=== PATIENT | female | born 1935 | race Caucasian/White ===

== ENCOUNTER 2018-02-17 18:10 | Emergency (ER) | payer BC, MEDICARE, OTHER ==
--- NOTE | 2018-02-17 18:19 | PDOC ---
Rapid Medical Evaluation Medical Evaluation: Allergies Allergy/AdvReac Type Severity Reaction Status Date / Time No Known Allergies Allergy Verified 10/10/12 13:53 I have performed a brief in-person evaluation of this patient. The patient presents with a chief complaint of: Had recent cold around 1 month ago; c/o generalized weakness x 2 weeks, worse past week. Cold symptoms are resolving now. Denies sob, cp, abd pain, n/v/d, urinary complaints. Pertinent physical exam findings: In NAD, lungs clear, abdomen soft, ND, NT I have ordered the following: Labs, EKG, CXR The patient will proceed to the ED for further evaluation. 02/17/18 18:14
[2018-02-17 18:21] VITALS: BMI 21.2
[2018-02-17 20:03] LABS: BASO % 0.4 % (0-2.0); EOS % 1.2 % (0-4.5); HEMATOCRIT 35.4 % (32.4-45.2); HEMOGLOBIN 12.5 GM/dL (10.7-15.3); LYMPH % 35.3 % (8-40); MCH 33.6 pg (25.7-33.7); MCHC 35.3 g/dl (32.0-36.0); MEAN CELL VOLUME 95.2 fl (80-96); MEAN PLT VOLUME 9.4 fl (7.5-11.1); MONO % 9.7 % (3.8-10.2); NEUT % 53.4 % (42.8-82.8); PLATELET COUNT 277 K/MM3 (134-434); RBC 3.72 M/mm3 (3.60-5.2); RDW 13.4 % (11.6-15.6); WHITE BLOOD COUNT 4.2 K/mm3 (4.0-10.0)
[2018-02-17 20:37] LABS: ANION GAP 7 MMOL/L (8-16); BLOOD UREA NITROGEN 11 mg/dL (7-18); CALCIUM 9.1 mg/dL (8.5-10.1); CHLORIDE 104 mmol/L (98-107); CO2 24 mmol/L (21-32); CREATININE 1.3 mg/dL (0.55-1.3); GLUCOSE,RANDOM 100 mg/dL (74-106); SODIUM 135 mmol/L (136-145)
[2018-02-17 21:05] LABS: URINE APPEARANCE CLEAR; URINE BILIRUBIN NEGATIVE (<2.0 mg/dL); URINE COLOR LTYELLOW; URINE GLUCOSE (UA) NEGATIVE (NEGATIVE); URINE KETONE NEGATIVE (NEGATIVE); URINE LEUK ESTERASE NEGATIVE (NEGATIVE); URINE NITRITE NEGATIVE (NEGATIVE); URINE PROTEIN NEGATIVE (NEGATIVE); URINE UROBILINOGEN NEGATIVE mg/dL (0.2-1.0)
--- NOTE | 2018-02-17 21:38 | PDOC ---
History of Present Illness - General Chief Complaint: Weakness Stated Complaint: WEAKNESS Time Seen by Provider: 02/17/18 21:09 History Source: Patient Exam Limitations: No Limitations - History of Present Illness Initial Comments: 02/17/18 21:26 82 yo female pmh of HTN and kidney stones presents to the ED for 2 weeks of generalized weakness after getting over a cold 1 month ago. Pt states she saw her PCP 4 days ago for a re-eval of symptoms and no further treatment was given at that time. There has been no change of symptoms for the last 2 weeks. Pt had a cough that was related to antonio inhibtors and was recently switched BP meds with resolution. Denies all other ROS F/C/N/V Past History - Past Medical History Allergies/Adverse Reactions: Allergies Allergy/AdvReac Type Severity Reaction Status Date / Time No Known Allergies Allergy Verified 02/17/18 18:15 Home Medications: Ambulatory Orders Amlodipine Bes/Olmesartan Med [Reji 5-40 mg Tablet] 1 each PO 10/10/12 Cholecalciferol (Vitamin D3) [Vitamin D] 1,000 unit PO DAILY 10/10/12 Cyanocobalamin (Vitamin B-12) [Vitamin B-12] 250 mcg PO DAILY 10/10/12 Levothyroxine [Synthroid] 50 mcg PO DAILY 10/10/12 Zolpidem Tartrate [Ambien] 5 mg PO DAILY 10/10/12 COPD: No HTN: Yes Thyroid Disease: Yes - Surgical History Cholecystectomy: Yes - Immunization History Immunization Up to Date: Yes - Suicide/Smoking/Psychosocial Hx Smoking Status: No Smoking History: Never smoked Number of Cigarettes Smoked Daily: 0 Information on smoking cessation initiated: No Hx Alcohol Use: No Drug/Substance Use Hx: No *Physical Exam - Vital Signs Last Vital Signs Temp Pulse Resp BP Pulse Ox 97.7 F 113 H 16 155/83 99 02/17/18 18:16 02/17/18 18:16 02/17/18 18:16 02/17/18 18:16 02/17/18 18:16 Moderate Sedation - Procedure Monitoring Vital Signs: Procedure Monitoring Vital Signs Temperature 97.7 F 02/17/18 18:16 Pulse Rate 113 H 02/17/18 18:16 Respiratory Rate 16 02/17/18 18:16 Blood Pressure 155/83 02/17/18 18:16 O2 Sat by Pulse Oximetry (%) 99 02/17/18 18:16 ED Treatment Course - LABORATORY CBC & Chemistry Diagram: 02/17/18 19:46 02/17/18 19:46 - ADDITIONAL ORDERS Additional order review: Laboratory Results 02/17/18 02/17/18 19:46 19:46 Sodium 135 L Potassium 4.0 Chloride 104 Carbon Dioxide 24 Anion Gap 7 L BUN 11 Creatinine 1.3 Creat Clearance w eGFR 39.12 Random Glucose 100 Calcium 9.1 Creatine Kinase 39 Troponin I < 0.02 Urine Color Ltyellow Urine Appearance Clear Urine pH 6.0 Ur Specific [place] 1.009 L Urine Protein Negative Urine Glucose (UA) Negative Urine Ketones Negative Urine Blood Negative Urine Nitrite Negative Urine Bilirubin Negative Urine Urobilinogen Negative Ur Leukocyte Esterase Negative 02/17/18 19:46 RBC 3.72 MCV 95.2 MCHC 35.3 RDW 13.4 MPV 9.4 Neutrophils % 53.4 D Lymphocytes % 35.3 D Monocytes % 9.7 Eosinophils % 1.2 Basophils % 0.4 Medical Decision Making - Medical Decision Making 02/17/18 22:47 a/p: 82yo female with recent cold feels weak for the past 2 weaks without any associated symptoms Tachy at 113 but when reassessed come down into the 90s without treatment. No Fever AOX3 NAD HEENT exam normal Lungs clear Labs WNL, no WBC count EKG normal sinus rhythm Possible pulmonary nodule seen on CXR Pt feels better and is able to ambulate without difficulty. Advised pt to follow up with PCP for a possible CT scan for the nodule visualized. Strict return precautions given. Pt agrees and understands plan *DC/Admit/Observation/Transfer Diagnosis at time of Disposition: Weakness - Discharge Dispostion Disposition: HOME Condition at time of disposition: Stable Decision to Admit order: No - Referrals Referrals: Jarrett Johnson MD [Primary Care Provider] - - Patient Instructions Printed Discharge Instructions: DI for Common Cold Additional Instructions: Please make appointment with your Primary Care Doctor within the next 24-48 hours. Discuss having a possible CAT scan of the chest with your Doctor as well. Do your best to increased food and water intake. Continue taking your home dosed medications as prescribed by your PCP. Return to the Emergency Room for new or concerning symptoms including but not limited to: progressive weakness, fatigue, inability to ambulate, productive cough, blood in the sputum , high fevers. Thank you - Post Discharge Activity
--- NOTE | 2018-02-17 22:29 | PDOC ---
Attending Attestation - HPI HPI: 02/17/18 22:38 The patient is a 82 year old female with a significant past medical history of HTN and kidney stones who presents to the ED for 2 weeks of generalized weakness after getting over a cold 1 month ago. Patient states she saw her PCP 4 days ago for a re-eval of symptoms and no further treatment was given at that time. There has been no change of symptoms for the last 2 weeks. Patient also reports a decreased intake of food associated with present symptoms. Denies fever or chills. Denies abdominal pain, nausea, vomiting or diarrhea. Denies chest pain or shortness of breath. Denies headache or nasal congestion. Denies any other symptoms. - Physicial Exam PE: 02/17/18 22:38 Constitutional: Awake, alert, oriented. No acute distress. Head: Normocephalic. Atraumatic Eyes: PERRL. EOMI. Conjunctivae are not pale. ENT: Mucous membranes are moist and intact. Posterior pharynx without exudates or erythema. Uvula midline. Neck: Supple. Full ROM. No lymphadenopathy. Cardiovascular: Regular rate. Regular rhythm. S1, S2 regular. Distal pulses are 2+ and symmetric. Pulmonary/Chest: No evidence of respiratory distress. Clear to auscultation bilaterally No wheezing, rales or rhonchi. Abdominal: Soft and non-distended. There is no tenderness. No rebound, guarding or rigidity. No organomegaly. No palpable masses. Good bowel sounds. Back: No CVA tenderness. Musculoskeletal: No edema. No cyanosis. No clubbing. Full range of motion in all extremities. Nocalf tenderness. Radial/pedal pulses are intact and 2+ bilaterally Skin: Skin is warm and dry. No petechiae. No purpura. Neurological: Alert and oriented to person, place, and time. Cranial nerves II -XII are grossly intact. Normal speech. Strength is grossly symmetric. No sensory deficits. Psychiatric: Good eye contact. Normal interaction, affect and behavior. <Olga Paz - Last Filed: 02/17/18 22:38> - Resident Resident Name: Paco Wang - ED Attending Attestation I have performed the following: I have examined & evaluated the patient, The case was reviewed & discussed with the resident, I agree w/resident's findings & plan, Exceptions are as noted - Medical Decision Making 02/17/18 22:29 I, Dr. Ann-Marie Boo, DO, attest that this document has been prepared under my direction and personally reviewed by me in its entirety. I further attest, that it accurately reflects all work, treatment, procedures and medical decision -making performed by me. 02/17/18 22:41 a/p: 82yo female with recent uri - still feeling weak -no cp/sob -no cough -no uti -no n/v/d -nontoxic in appearance -labs, ekg, cxr - discussed possible pulmonary nodule. discussed follow up ct as outpt -answered all quesitons -pt feels better and requesting to go home and follow up with PMD. <Ann-Marie Boo - Last Filed: 02/17/18 22:43> Heart Score/ECG Review - ECG Intrepretation Comment:: 02/17/18 22:29 sinus at 88, nl axis, nl interval, no acute st/t wave findings <Ann-Marie Boo - Last Filed: 02/17/18 22:43> Attestations - Attestations 02/17/18 22:38 Documentation prepared by Olga Paz, acting as medical care evaluation specialist for Ann-Marie Boo DO <Olga Paz - Last Filed: 02/17/18 22:38>
[2018-02-17 22:54] VITALS: BP 128/77; PULSE 88; TEMP 98.7
--- NOTE | 2018-02-18 11:29 | EKG ---
Test Reason : Blood Pressure : / mmHG Vent. Rate : 088 BPM Atrial Rate : 088 BPM P-R Int : 124 ms QRS Dur : 082 ms QT Int : 382 ms P-R-T Axes : 055 041 045 degrees QTc Int : 462 ms POOR DATA QUALITY, INTERPRETATION MAY BE ADVERSELY AFFECTED NORMAL SINUS RHYTHM NORMAL ECG WHEN COMPARED WITH ECG OF 10-OCT-2012 14:41, NO SIGNIFICANT CHANGE WAS FOUND Confirmed by MEGHAN TEMPLE, JOSEPH ([id number]) on 02/18/2018 11:28:44 AM Referred By: Confirmed By:JOSEPH CHRISTIANSON MD
== END 2018-02-17 22:50 | disposition home or self-care (01) ==
LOC: JER 18:10
DX: R53.1 Weakness (principal); I10 Essential (primary) hypertension; E07.89 Other specified disorders of thyroid
CPT/HCPCS: 36415; 71046-TC-FY; 80048; 81003; 82550; 84484; 85025; 93005; 93010; 99282-25

== ENCOUNTER 2018-07-15 14:30 | Inpatient (IN) | payer BC | END 2018-07-17 16:34 | disposition home or self-care (01) | LOC: JER 14:30 → JERBED 15:50 → J4S 21:40 ==

== ENCOUNTER 2018-08-24 11:48 | Emergency (ER) | payer BC, OTHER ==
[2018-08-24 11:52] VITALS: BMI 22.0
--- NOTE | 2018-08-24 12:04 | PDOC ---
History of Present Illness - General Chief Complaint: Pain, Acute Stated Complaint: LBP Time Seen by Provider: 08/24/18 12:04 - History of Present Illness Initial Comments: 08/24/18 16:26 chief complaint: Low back pain History of present illness: Pain and stiffness in the sacral and coccygeal areas of the low back for approximately one after undergoing a medical procedure which required lying on a hard table for prolonged period of time. Pain was worse this morning. aggravated by weightbearing.no radiation to the legs. No distal numbness or tingling. No oumar weakness. No bowel or bladder incontinence or retention. Review of systems as above otherwise negative Past medical, social, and family history noncontributory. to this illness physical exam: Alert and oriented, moderate distress from low back pain afebrile, vital signs normal LS spine with normal curvature, no deformities, no inflammation, no point tenderness. Indicated pain is over the lower sacrum and coccyx. Straight leg raising negative. Strength full and symmetrc. No focal sensory or motor deficits. No posterior calf swelling or tenderness. Impression: Low back strain, no radiculopathy. Plan: Analgesics and orthopedic referral. Somewhat improved with Percocet. Taking Eliquis limiting the use of anti-inflammatories. Begun on Medrol Dosepak yesterday . Dr. Gonzales was contacted and will see patient today in his office. Past History - Past Medical History Allergies/Adverse Reactions: Allergies Allergy/AdvReac Type Severity Reaction Status Date / Time No Known Allergies Allergy Verified 08/24/18 11:49 Home Medications: Ambulatory Orders Levothyroxine [Synthroid -] 50 mcg PO DAILY 10/10/12 Apixaban [Eliquis -] 5 mg PO BID #60 tablet 07/17/18 Diltiazem Cd [Cardizem Cd -] 240 mg PO DAILY #30 cap.cd.24h 07/17/18 Anemia: No Asthma: No Cancer: No Cardiac Disorders: Yes (Chest pain, SOB, AFIB) CVA: No COPD: No CHF: No Dementia: No Diabetes: No GI Disorders: No HTN: Yes Liver Disease: No Seizures: No Thyroid Disease: Yes (hypothyriod) - Surgical History Cholecystectomy: Yes - Immunization History Immunization Up to Date: Yes - Suicide/Smoking/Psychosocial Hx Smoking Status: No Smoking History: Never smoked Have you smoked in the past 12 months: No Number of Cigarettes Smoked Daily: 0 Hx Alcohol Use: No Drug/Substance Use Hx: No Substance Use Type: None Hx Substance Use Treatment: No *Physical Exam - Vital Signs Last Vital Signs Temp Pulse Resp BP Pulse Ox 98.7 F 83 18 154/73 98 08/24/18 11:49 08/24/18 11:49 08/24/18 11:49 08/24/18 11:49 08/24/18 11:49 *DC/Admit/Observation/Transfer Diagnosis at time of Disposition: Low back strain Qualifiers: Encounter type: initial encounter Qualified Code(s): S39.012A - Strain of muscle, fascia and tendon of lower back, initial encounter - Discharge Dispostion Disposition: HOME Condition at time of disposition: Stable Decision to Admit order: No - Referrals Referrals: Jarrett Johnson MD [Primary Care Provider] - 24 hours Grady Gonzales MD [Staff Physician] - 24 hours - Patient Instructions Printed Discharge Instructions: DI for Low Back Pain Additional Instructions: avoid sitting in a chair or a car. Lie on a firm flat surface or do some limited walking around the house and gentle stretching. - Post Discharge Activity
[2018-08-24 12:26] VITALS: BP 154/73; PULSE 83; TEMP 98.7
== END 2018-08-24 14:40 | disposition home or self-care (01) ==
LOC: FER 11:48
DX: S39.012A Strain of muscle, fascia and tendon of lower back, initial encounter (principal); X58.XXXA Exposure to other specified factors, initial encounter; Y93.89 Activity, other specified; Y92.89 Other specified places as the place of occurrence of the external cause; E03.9 Hypothyroidism, unspecified; I10 Essential (primary) hypertension; R07.9 Chest pain, unspecified; R06.02 Shortness of breath; I48.91 Unspecified atrial fibrillation
CPT/HCPCS: 99281-25

== ENCOUNTER 2018-08-30 12:43 | Inpatient (IN) | payer BC ==
--- NOTE | 2018-08-30 13:34 | PDOC ---
History of Present Illness - History of Present Illness Initial Comments: 08/30/18 13:50 Shantel Ramires is a 83yF with a PMHx of a fib on eliquis, hypothyroidism, HTN presenting with lower back pain. Pain started 3 wks ago after an EKG and twisted her back while on a hard bed. Since then, pain progressively worsening in R lower back over sacral and coccyx region. Focal pain, no radiation to back or legs. No fevers/chills, bowel/bladder incontinence. Percocet and advil offered little relief. Presented to [facility] ED last week, d/c home with analgesics and medrol dose haley. Saw Dr. Grady Gonzales orthopedic surgeon, back XR negative for fracture. Had shingles vaccine. <Jose Morgan - Last Filed: 08/30/18 15:18> <Bettye Woodward - Last Filed: 08/30/18 23:02> - General Chief Complaint: Back Pain Stated Complaint: BACK PAIN Time Seen by Provider: 08/30/18 13:14 Past History - Past Medical History Anemia: No Asthma: No Cancer: No Cardiac Disorders: Yes (Chest pain, SOB, AFIB) CVA: No COPD: No CHF: No Dementia: No Diabetes: No GI Disorders: No HTN: Yes Liver Disease: No Seizures: No Thyroid Disease: Yes (hypothyriod) - Surgical History Cholecystectomy: Yes - Immunization History Immunization Up to Date: Yes - Suicide/Smoking/Psychosocial Hx Smoking Status: No Smoking History: Never smoked Have you smoked in the past 12 months: No Number of Cigarettes Smoked Daily: 0 Information on smoking cessation initiated: No Hx Alcohol Use: No Drug/Substance Use Hx: No Substance Use Type: None Hx Substance Use Treatment: No <Jose Morgan - Last Filed: 08/30/18 15:18> <Bettye Woodward - Last Filed: 08/30/18 23:02> - Past Medical History Allergies/Adverse Reactions: Allergies Allergy/AdvReac Type Severity Reaction Status Date / Time No Known Allergies Allergy Verified 08/30/18 14:51 Home Medications: Ambulatory Orders Levothyroxine [Synthroid -] 50 mcg PO DAILY 10/10/12 Apixaban [Eliquis -] 5 mg PO BID #60 tablet 07/17/18 Diltiazem Cd [Cardizem Cd -] 240 mg PO DAILY #30 cap.cd.24h 07/17/18 Oxycodone HCl/Acetaminophen [Percocet 5-325 mg Tablet] 1 tablet PO PRN PRN 08/30 Zolpidem Tartrate 10 mg PO DAILY 08/30/18 Review of Systems - Review of Systems Constitutional: No: Chills, Fever, Night Sweats, Weakness HEENTM: No: Eye Pain, Ear Pain, Nose Pain Respiratory: No: Cough, Shortness of Breath Cardiac (ROS): No: Chest Pain, Edema, Syncope ABD/GI: No: Constipated, Diarrhea, Nausea, Vomiting : No: Burning, Dysuria, Discharge, Pain Musculoskeletal: Yes: Back Pain (R lower back). No: Muscle Weakness Integumentary: No: Bruising, Change in Color, Erythema, Lesions, Pruritus, Rash Endocrine: No: Excessive Sweating, Flushing, Change in Weight Hematologic/Lymphatic: No: Easy Bleeding, Easy Bruising <Jose Morgan - Last Filed: 08/30/18 15:18> *Physical Exam - Vital Signs Last Vital Signs Temp Pulse Resp BP Pulse Ox 97 F L 84 18 148/89 99 08/30/18 12:58 08/30/18 12:58 08/30/18 12:58 08/30/18 12:58 08/30/18 12:58 - Physical Exam General Appearance: Yes: Moderate Distress (lying on R side), Thin HEENT: positive: JESIKA, Normal Voice Respiratory/Chest: positive: Lungs Clear, Normal Breath Sounds. negative: Respiratory Distress Cardiovascular: positive: Regular Rhythm, Regular Rate, S1, S2. negative: Murmur Musculoskeletal: positive: Other (R lower back: no skin breakage, rashes, or erythema. Extremely tender to palpation) <Jose Morgan - Last Filed: 08/30/18 15:18> - Vital Signs Last Vital Signs Temp Pulse Resp BP Pulse Ox 97.5 F L 75 20 133/72 98 08/30/18 20:16 08/30/18 20:16 08/30/18 20:16 08/30/18 20:16 08/30/18 16:55 <Bettye Woodward - Last Filed: 08/30/18 23:02> ED Treatment Course - Medications Given in the ED: ED Medications Discontinued Medications Generic Name Dose Route Start Last Admin Trade Name Ana PRN Reason Stop Dose Admin Acetaminophen 1,000 mg 08/30/18 13:58 08/30/18 14:30 Ofirmev Injection - IVPB 08/30/18 13:59 1,000 mg ONCE ONE Administration Acetaminophen 325 mg 08/30/18 15:30 08/30/18 16:46 Tylenol - PO 08/30/18 15:31 Not Given ONCE ONE Cyclobenzaprine HCl 5 mg 08/30/18 13:58 08/30/18 14:30 Flexeril - PO 08/30/18 13:59 5 mg ONCE ONE Administration Lidocaine 1 patch 08/30/18 13:54 08/30/18 14:30 Lidoderm Patch - TP 08/30/18 13:55 1 patch ONCE ONE Administration Oxycodone HCl 5 mg 08/30/18 15:30 08/30/18 16:45 Roxicodone - PO 08/30/18 15:31 Not Given ONCE ONE Oxycodone HCl 5 mg 08/30/18 16:07 08/30/18 17:56 Roxicodone - PO 5 mg Q6H PRN Administration PAIN SCALE 6-10 Oxycodone/Acetaminophen 1 combo 08/30/18 14:58 08/30/18 16:44 Percocet 5/325 - PO 08/30/18 14:59 Not Given ONCE ONE Oxycodone/Acetaminophen 1 combo 08/30/18 15:30 08/30/18 15:00 Percocet 5/325 - PO 08/30/18 15:31 1 combo ONCE ONE Administration <Bettye Woodward - Last Filed: 08/30/18 23:02> Medical Decision Making - Critical Care Time Total Critical Care Time (minutes): 30 Critical Care Statement: The care of this patient involved high complexity decision making to prevent further life threatening deterioration of the patient 's condition and/or to evaluate & treat vital organ system(s) failure or risk of failure. - Medical Decision Making 08/30/18 15:12 Talked to PCP, advised to get CT back, admit for further workup and pain control Given lidoderm patch, tylenol, flexeril without any pain relief Given 5mg percocet Shantel Ramires is a 83yF with a PMHx of a fib on eliquis, hypothyroidism, HTN presenting with right lower back pain. Likely MSK due to negative imaging. Unlikely spinal stenosis d/t lack of bowel or urinary changes. Unlikely fracture /herniation d/t negative ortho imaging 1 week ago. Given meds for pain control, ordered CT L-spine. Plan per PCP to admit to floor for further workup and pain control. 08/30/18 15:18 <Jose Morgan - Last Filed: 08/30/18 15:18> *DC/Admit/Observation/Transfer <Jose Morgan - Last Filed: 08/30/18 15:18> - Discharge Dispostion Decision to Admit order: Yes <Bettye Woodward - Last Filed: 08/30/18 23:02> Diagnosis at time of Disposition: Right low back pain, Sacral fracture - Discharge Dispostion Condition at time of disposition: Stable
[2018-08-30] MEDS ORDERED: LIDOCAINE 5% TOPICAL PATCH TP ONE (13:54)
[2018-08-30] MEDS ORDERED: ACETAMINOPHEN 1000 MG/100 ML VIAL (NON FORMULARY) IVPB ONE (13:58)
[2018-08-30] MEDS ORDERED: CYCLOBENZAPRINE HCL 10 MG TABLET (FP) PO ONE (13:58)
[2018-08-30] MEDS ORDERED: CYCLOBENZAPRINE HCL 10 MG TABLET (FP) ONE (14:20)
[2018-08-30] MEDS ORDERED: ACETAMINOPHEN INJECTION 100 ML IVPB ONE (14:20)
[2018-08-30] MEDS ORDERED: LIDOCAINE 5% TOPICAL PATCH ONE (14:21)
--- NOTE | 2018-08-30 14:47 | PDOC ---
Documentation entered by Deana Modi SCRIBE, acting as scribe for Bettye Woodward MD. Bettye Woodward MD: This documentation has been prepared by the Rian coulter Adrianna, SCRIBE, under my direction and personally reviewed by me in its entirety. I confirm that the documentation accurately reflects all work, treatment, procedures, and medical decision making performed by me. Attending Attestation - Resident Resident Name: CathyJose - ED Attending Attestation I have performed the following: I have examined & evaluated the patient, The case was reviewed & discussed with the resident, I agree w/resident's findings & plan - HPI HPI: 83 y/o female with past medical history of Afib (on Eliquis), HTN, hypothyroidism, and kidney stones, who presents for sacral/lumbar back pain. Patient was seen in the ED 6 days ago for the same complaint on 08/24/18, and was discharged after relief with Percocet and given Ortho referral Dr Gonzales and Medrol pack. She notes no change in symptoms since her visit. Patients PMD advised her to come to the ED for admission and CT L-spine secondary to failure with outpatient treatment modalities. Allergies: NKA Past Medical History: Afib (on Eliquis), HTN, hypothyroidism, and kidney stones Social history: Lives with family. No tobacco, ETOH or drug use. Surgical history: Cholecystectomy Meds: as documented in EMR PMD: Dr. Johnson 08/30/18 14:33 08/30/18 14:42 - Physicial Exam PE: Agree with the resident's HPI and PE as documented in the electronic medical record. NAD, well appearing, lying on side, no respiratory distress, abdomen soft nontender. PULIDO x4, no focal neuro deficits. No peripheral edema. normal color for ethnicity, WWP. 5/5 plantar and dorsiflexion, bilateral lower extremities; SILT +sacral tenderness, mild right paravertebral/buttock TTP. 08/30/18 14:25 08/30/18 14:39 - Medical Decision Making 08/30/18 14:41 VS reviewed, wnl DDx back pain: back strain, lumbago, sciatica, radiculopathy, spinal stenosis. Muscle spasm. Lumbar radiculopathy. Clinically doubt based on exam and clinical history: cord compression or cauda equina, with low suspicion and NO red flag sx such as weight loss, trauma, fevers, IVDU, lumbar/spinal procedures, bowel and bladder incontinence/retention , urinary sx, neurologic deficits or changes. admit for back pain, imaging and Dr Johnson service, discussed care. inpatient ortho cs, continued analgesia. Lumbar CT scan shows acute/subacute sacral fractures, small left paramedian T11- [id number] herniation - PT/ortho/ consult, pain control, medical management. 08/30/18 14:46 08/30/18 23:02
[2018-08-30] MEDS ORDERED: oxyCODONE HCL 5 MG TABLET PO ONE (15:30)
[2018-08-30] MEDS ORDERED: ACETAMINOPHEN 325 MG TABLET (FP) PO ONE (15:30)
[2018-08-30] MEDS ORDERED: oxyCODONE HCL 5 MG TABLET PO PRN (16:07)
--- NOTE | 2018-08-30 16:52 | HP ---
Admitting History and Physical - Primary Care Physician PCP: Jarrett Johnson - Admission Chief Complaint: worsening lower back pain History of Present Illness: Patient is an 83 y/o female with past medical history of Afib on Eliquis, HTN, hypothyroidism, and Kidney Stones. Patient was sent to ER by PCP for worsening lower back pain. She states that she has a heavy/aching pain to lower back x 1 month. Denies trauma or injury. She was seen at [place] last Wednesday for same chief complaint and received Medrol Dose pack and followed up with Orthopedist Dr. Gonzales. Patient states that pain has gotten increasingly worse and is now experiencing difficulty walking. History Source: Patient Limitations to Obtaining History: No Limitations - Past Medical History Cardiovascular: Yes: HTN Endocrine: Yes: Hypothyroidism - Past Surgical History Past Surgical History: Yes: Cholecystectomy - Smoking History Smoking history: Never smoked Have you smoked in the past 12 months: No Aproximately how many cigarettes per day: 0 - Alcohol/Substance Use Hx Alcohol Use: No - Social History ADL: Independent History of Recent Travel: No Home Medications - Allergies Allergies/Adverse Reactions: Allergies Allergy/AdvReac Type Severity Reaction Status Date / Time No Known Allergies Allergy Verified 08/30/18 14:51 - Home Medications Home Medications: Ambulatory Orders Levothyroxine [Synthroid -] 50 mcg PO DAILY 10/10/12 Apixaban [Eliquis -] 5 mg PO BID #60 tablet 07/17/18 Diltiazem Cd [Cardizem Cd -] 240 mg PO DAILY #30 cap.cd.24h 07/17/18 Oxycodone HCl/Acetaminophen [Percocet 5-325 mg Tablet] 1 tablet PO PRN PRN 08/30 Zolpidem Tartrate 10 mg PO DAILY 08/30/18 Review of Systems - Review of Systems Constitutional: reports: Loss of Appetite Eyes: reports: No Symptoms HENT: reports: No Symptoms Neck: reports: No Symptoms Cardiovascular: reports: No Symptoms Respiratory: reports: No Symptoms Gastrointestinal: reports: No Symptoms Genitourinary: reports: No Symptoms Breasts: reports: No Symptoms Reported Musculoskeletal: reports: Back Pain, Muscle Weakness Integumentary: reports: No Symptoms Neurological: reports: No Symptoms Endocrine: reports: No Symptoms Hematology/Lymphatic: reports: No Symptoms Psychiatric: reports: No Symptoms Physical Examination Vital Signs: Vital Signs Temperature 97.7 F 08/30/18 14:50 Pulse Rate 79 08/30/18 14:50 Respiratory Rate 17 08/30/18 14:50 Blood Pressure 143/68 08/30/18 14:50 O2 Sat by Pulse Oximetry (%) 98 08/30/18 14:50 Constitutional: Yes: No Distress, Calm Eyes: Yes: Conjunctiva Clear HENT: Yes: Atraumatic Neck: Yes: Supple Cardiovascular: Yes: Regular Rate and Rhythm Respiratory: Yes: Regular, CTA Bilaterally Gastrointestinal: Yes: Normal Bowel Sounds, Soft Musculoskeletal: Yes: Muscle Weakness Extremities: Yes: WNL Edema: No Neurological: Yes: Alert, Oriented Psychiatric: Yes: Alert, Oriented Imaging - Results Cat Scan: Report Reviewed Problem List - Problems (1) Right low back pain Assessment/Plan: -Orthopedic and Neurosurgery consult -Lumbar CT scan shows acute/subacute sacral fractures, small left paramedian T11 -[id number] herniation -pain control Code(s): M54.5 - LOW BACK PAIN (2) HTN (hypertension) Assessment/Plan: -Diltiazem -low Na diet Code(s): I10 - ESSENTIAL (PRIMARY) HYPERTENSION (3) Hypothyroid Assessment/Plan: -Levothyroxine Code(s): E03.9 - HYPOTHYROIDISM, UNSPECIFIED (4) New onset atrial fibrillation Assessment/Plan: -Eliquis Code(s): I48.91 - UNSPECIFIED ATRIAL FIBRILLATION Assessment/Plan see problem list dvt ppx
[2018-08-30] MEDS: APIXABAN 5 MG TABLET PO SCH (22:04)
[2018-08-30] MEDS: LIDOCAINE PATCH REMOVAL MC SCH (22:04)
[2018-08-30] MEDS: ZOLPIDEM TARTRATE 5 MG TABLET PO PRN (22:13)
[2018-08-31] MEDS: LEVOTHYROXINE NA 50 MCG TABLET (FP) PO SCH (06:37)
[2018-08-31] MEDS: oxyCODONE HCL 5 MG TABLET PO PRN ×3 (06:39→18:20)
[2018-08-31 07:46] LABS: BASO % 0.1 % (0-2.0); EOS % 2.1 % (0-4.5); HEMATOCRIT 38.9 % (32.4-45.2); HEMOGLOBIN 13.4 GM/dL (10.7-15.3); LYMPH % 20.4 % (8-40); MCH 32.4 pg (25.7-33.7); MCHC 34.4 g/dl (32.0-36.0); MEAN CELL VOLUME 94.3 fl (80-96); MEAN PLT VOLUME 9.1 fl (7.5-11.1); MONO % 9.8 % (3.8-10.2); NEUT % 67.6 % (42.8-82.8); PLATELET COUNT 186 K/MM3 (134-434); RBC 4.12 M/mm3 (3.60-5.2); RDW 13.1 % (11.6-15.6); WHITE BLOOD COUNT 4.6 K/mm3 (4.0-10.0)
[2018-08-31 08:07] LABS: BILIRUBIN,TOTAL 0.8 mg/dL (0.2-1); BLOOD UREA NITROGEN 29.5 mg/dL (7-18); CALCIUM 8.8 mg/dL (8.5-10.1); CREATININE 1.2 mg/dL (0.55-1.3); MAGNESIUM 2.1 mg/dL (1.8-2.4); PHOSPHOROUS 3.2 mg/dL (2.5-4.9); POTASSIUM 3.7 mmol/L (3.5-5.1); TOT PROT 6.6 g/dl (6.4-8.2)
[2018-08-31] MEDS ORDERED: DOCUSATE SODIUM 100 MG CAPSULE (FP) PO PRN (09:03)
[2018-08-31] MEDS ORDERED: FENTANYL PATCH WASTE MC PRN (09:03)
--- NOTE | 2018-08-31 09:05 | PN ---
Progress Note, Physician - Current Medication List Current Medications: Active Medications Acetaminophen (Tylenol -) 325 mg PO Q6H PRN PRN Reason: PAIN SCALE 6-10 Apixaban (Eliquis -) 5 mg PO BID [facility] Last Admin: 08/30/18 22:04 Dose: 5 mg Diltiazem HCl (Cardizem Cd -) 240 mg PO DAILY [facility] Levothyroxine Sodium (Synthroid -) 50 mcg PO AM [facility] Last Admin: 08/31/18 06:37 Dose: 50 mcg Miscellaneous (Lidoderm Patch Removal) 1 each MC DAILY@2200 [facility] Last Admin: 08/30/18 22:04 Dose: 1 each Oxycodone HCl (Roxicodone -) 10 mg PO Q6H PRN PRN Reason: PAIN SCALE 6-10 Last Admin: 08/31/18 06:39 Dose: 10 mg Zolpidem Tartrate (Ambien -) 5 mg PO HS PRN PRN Reason: INSOMNIA Last Admin: 08/30/18 22:13 Dose: 5 mg - Objective Vital Signs: Vital Signs Temperature 98.5 F 08/31/18 06:00 Pulse Rate 83 08/31/18 06:00 Respiratory Rate 20 08/31/18 06:00 Blood Pressure 123/70 08/31/18 06:00 O2 Sat by Pulse Oximetry (%) 98 08/30/18 16:55 Cardiovascular: Yes: S1, S2 Respiratory: Yes: Regular, CTA Bilaterally Gastrointestinal: Yes: Normal Bowel Sounds, Soft Musculoskeletal: Yes: Back Pain Edema: No Neurological: Yes: Alert, Oriented, Unsteady Gait, Weakness Labs: CBC, BMP 08/31/18 07:14 08/31/18 07:14 Problem List - Problems (1) Sacral fracture Assessment/Plan: ADD DURAGESIC PATCH OXY PRN PT ORTHO Code(s): S32.10XA - UNSP FRACTURE OF SACRUM, INIT ENCNTR FOR CLOSED FRACTURE (2) Afib Assessment/Plan: CONTINUE WITH ELIQUIS Code(s): I48.91 - UNSPECIFIED ATRIAL FIBRILLATION (3) HTN (hypertension) Assessment/Plan: Vital Signs Period Temp Pulse Resp BP Sys/Lr Pulse Ox Last 24 Hr 97.5 F-98.5 F 75-87 17-20 123-146/54-78 98-98 Code(s): I10 - ESSENTIAL (PRIMARY) HYPERTENSION
[2018-08-31] MEDS ORDERED: PT OWN MED DRAWER 7, Y5N ONE ×3 (09:45→14:53)
[2018-08-31] MEDS: APIXABAN 5 MG TABLET PO SCH ×2 (09:53→21:33)
[2018-08-31] MEDS: fentaNYL 25mcg/hr PATCH.TD72 TD SCH (09:53)
--- NOTE | 2018-08-31 10:19 | PN ---
Progress Note (short form) - Note Progress Note: Pt seen and examined. She is an 83 year old female patient who denies any recent history of major trauma, but about 1 1/2 weeks ago she was on a cardiac testing table, and the legs were left dangling after the test. She felt a mild pain in the low back at that moment. Since then she has had pain in the low back , increasing with weight bearing to the point that she has great difficulty ambulating. She denies sciatica, but the legs feel weak, like they will give out. PE + tender over the low back, posterior pelvis, over the sacrum B/L LE are NVI, good ROM at the hips, knees, ankles, feet, toes Nl strength throughout, but hip flexion resistance is moderately painful at the low back No signs of sciatica CT scan of the lumbar spine and pelvis shows a small HNP at T11-T12, as well as acute/subacute bilateral sacral alae fractures. Imp T11-T12 HNP and bilateral sacral alae fractures, significant pain with walking Rec P.T., WBAT, ambulate with walker OOB to chair with assistance for atleast 3 hours/day SNF placement may be necessary Follow up in office as an out patient in 2 weeks for repeat xrays
[2018-08-31] MEDS: CALCITONIN - SALMON SYNTHETIC 200 UNITS/SPRAY NS SCH (11:30)
[2018-08-31] MEDS: ACETAMINOPHEN 325 MG TABLET (FP) PO PRN ×2 (12:31→18:21)
--- NOTE | 2018-08-31 13:31 | CONSULT ---
Consult Consult Specialty:: PM&R Dr An for Dr Chisholm - History of Present Illness Chief Complaint: low back pain History of Present Illness: This is an 83 year old woman with a medical history of A fib on Eliquis, HTN, s/ p cholecystectomy, renal stones, hypothyroidism, who presented to the ED with worsening LBP x1 month. 08/30/18 CT lumbar spine showed acute to subacute B sacral fractures with small L paramedian T11-T12 HNP. She was admitted for pain control and is pending Neurosurgical and Ortho consults. She was seen by PT, and on 08/31/18 she was Minimum Assist in Transfers, and ambulated 20 feet Contact Guard x2 people with Rolling Walker. Physiatry is being consulted for further recommendations. - Past Medical History Cardio/Vascular: Yes: AFIB, HTN Renal/: Yes: Renal Calculi ...: No Endocrine: Yes: Hypothyroidism - Past Surgical History Past Surgical History: Yes: Cholecystectomy - Alcohol/Substance Use Hx Alcohol Use: No - Smoking History Smoking history: Never smoked Have you smoked in the past 12 months: No Aproximately how many cigarettes per day: 0 - Social History Usual Living Arrangement: Alone (lives alone in house with 13 steps to enter from garage and 13 more to bedroom) ADL: Independent (without assistive device) History of Recent Travel: No Home Medications - Allergies Allergies/Adverse Reactions: Allergies Allergy/AdvReac Type Severity Reaction Status Date / Time No Known Allergies Allergy Verified 08/30/18 14:51 - Home Medications Home Medications: Ambulatory Orders Levothyroxine [Synthroid -] 50 mcg PO DAILY 10/10/12 Apixaban [Eliquis -] 5 mg PO BID #60 tablet 07/17/18 Diltiazem Cd [Cardizem Cd -] 240 mg PO DAILY #30 cap.cd.24h 07/17/18 Oxycodone HCl/Acetaminophen [Percocet 5-325 mg Tablet] 1 tablet PO PRN PRN 08/30 Zolpidem Tartrate 10 mg PO DAILY 08/30/18 Review of Systems Findings/Remarks: Denies fevers, chills, changes in vision/ hearing/ mood, CP, SOB, abdominal pain , nausea, vomiting, constipation, diarrhea, dysuria, numbness/ paresthesias. Notes LBP into R buttock but does not radiate below. Physical Exam Vital Signs: Vital Signs Temperature 97.8 F 08/31/18 10:00 Pulse Rate 87 08/31/18 10:00 Respiratory Rate 18 08/31/18 10:00 Blood Pressure 123/54 L 08/31/18 10:00 O2 Sat by Pulse Oximetry (%) 98 08/30/18 16:55 Musculoskeletal: Yes: Other (General: calm elderly F lying in bed NAD , AAO x3 N/M: B shoulder flexion to 150 degrees, 5/5 BUE/ BLE except for 4+/5 B HF; Pinprick Intact BUE/ BLE Extremities: no BLE pitting edema, no B calf tenderness, +tendernes to palpation sacrum without lumbar paraspinal/ gluteal/ GT tenderness) Labs: CBC, BMP 08/31/18 07:14 08/31/18 07:14 Imaging - Results Cat Scan: Report Reviewed (CT LS spine as per HPI) Assessment/Plan Impression: 1) Deficits mobility/ ADLs 2) Gait abnormality 3) B sacral fx 4) T11-T12 L paramedian HNP 5) hx A fib on Eliquis, HTN 6) s/p cholecystectomy 7) hx renal stones 8) hx hypothyroidism 9) BMI WNL 10) Up to date pneumovax, no documented flu shot Recommendations: 1) PT for functional mobility and endurance 2) Falls, safety precautions 3) Cardiac precautions 4) Ice sacrum prn 5) DVT ppx: on Eliquis 6) Denies constipation on current bowel regimen 7) Skin protection: float heels, frequent turning 8) Pending Ortho and Neurosurgical consults 9) Pain controlled on Fentanyl/ Lidoderm patches 10) Discharge planning: depending on pain level, she may be able to return home with services versus short- course inpatient rehabilitation Thank you for this referral.
[2018-08-31] MEDS: LIDOCAINE PATCH REMOVAL MC SCH (21:36)
[2018-08-31] MEDS ORDERED: ZOLPIDEM TARTRATE 5 MG TABLET PO PRN (22:00)
[2018-08-31] MEDS: ZOLPIDEM TARTRATE 5 MG TABLET PO PRN (23:01)
[2018-09-01] MEDS: LEVOTHYROXINE NA 50 MCG TABLET (FP) PO SCH (06:10)
[2018-09-01] MEDS: oxyCODONE HCL 5 MG TABLET PO PRN ×3 (08:04→21:33)
[2018-09-01] MEDS: ACETAMINOPHEN 325 MG TABLET (FP) PO PRN ×2 (08:05→15:19)
[2018-09-01] MEDS ORDERED: PT OWN MED DRAWER 7, Y5N ONE (09:06)
[2018-09-01] MEDS: APIXABAN 5 MG TABLET PO SCH ×2 (09:10→21:34)
[2018-09-01] MEDS: CALCITONIN - SALMON SYNTHETIC 200 UNITS/SPRAY NS SCH (09:11)
--- NOTE | 2018-09-01 18:17 | PN ---
Progress Note, Physician Chief Complaint: Low back pain History of Present Illness: NAD lying in bed comfortably daughter bedside walked with PT-25 ft NS consult-conservative measure - Current Medication List Current Medications: Active Medications Acetaminophen (Tylenol -) 325 mg PO Q6H PRN PRN Reason: PAIN SCALE 6-10 Last Admin: 09/01/18 15:19 Dose: 325 mg Apixaban (Eliquis -) 5 mg PO BID [facility] Last Admin: 09/01/18 09:10 Dose: 5 mg Calcitonin (Miacalcin [place] -) 200 units NS DAILY [facility] Last Admin: 09/01/18 09:11 Dose: 200 spray Diltiazem HCl (Cardizem Cd -) 240 mg PO DAILY [facility] Last Admin: 09/01/18 09:09 Dose: 240 mg Docusate Sodium (Colace -) 100 mg PO BID PRN PRN Reason: CONSTIPATION Fentanyl (Duragesic 25mcg Patch -) 1 patch TD Q72H [facility] Stop: 09/07/18 09:03 Last Admin: 08/31/18 09:53 Dose: 1 patch Levothyroxine Sodium (Synthroid -) 50 mcg PO AM [facility] Last Admin: 09/01/18 06:10 Dose: 50 mcg Miscellaneous (Lidoderm Patch Removal) 1 each MC DAILY@2200 [facility] Last Admin: 08/31/18 21:36 Dose: Not Given Miscellaneous (Duragesic Patch Waste) 1 each MC PRN PRN PRN Reason: PAIN Oxycodone HCl (Roxicodone -) 10 mg PO Q6H PRN PRN Reason: PAIN SCALE 6-10 Last Admin: 09/01/18 15:18 Dose: 10 mg Zolpidem Tartrate (Ambien -) 5 mg PO HS PRN PRN Reason: INSOMNIA Last Admin: 08/31/18 23:01 Dose: 5 mg - Objective Vital Signs: Vital Signs Temperature 97.6 F 09/01/18 13:48 Pulse Rate 86 09/01/18 13:48 Respiratory Rate 20 09/01/18 13:48 Blood Pressure 131/65 09/01/18 13:48 O2 Sat by Pulse Oximetry (%) 98 08/30/18 16:55 Constitutional: Yes: No Distress, Calm, Cachectic Cardiovascular: Yes: Regular Rate and Rhythm Respiratory: Yes: Regular Gastrointestinal: Yes: WNL Genitourinary: Yes: WNL Musculoskeletal: Yes: Back Pain Extremities: Yes: WNL Edema: No Peripheral Pulses WNL: Yes Neurological: Yes: Alert, Oriented Psychiatric: Yes: Alert, Oriented Labs: CBC, BMP 08/31/18 07:14 08/31/18 07:14 Assessment/Plan (1) Right low back pain Assessment/Plan: -Orthopedic and Neurosurgery consult -Lumbar CT scan shows acute/subacute sacral fractures, small left paramedian T11 -[id number] herniation, S2 acute/subacute fx -pain control -Pt wants to go to SNF, notified Code(s): M54.5 - LOW BACK PAIN (2) HTN (hypertension) Assessment/Plan: -Diltiazem -low Na diet Code(s): I10 - ESSENTIAL (PRIMARY) HYPERTENSION (3) Hypothyroid Assessment/Plan: -Levothyroxine Code(s): E03.9 - HYPOTHYROIDISM, UNSPECIFIED (4) New onset atrial fibrillation Assessment/Plan: -Eliquis Code(s): I48.91 - UNSPECIFIED ATRIAL FIBRILLATION
[2018-09-01] MEDS: ZOLPIDEM TARTRATE 5 MG TABLET PO PRN (21:34)
[2018-09-01] MEDS: LIDOCAINE PATCH REMOVAL MC SCH (21:35)
[2018-09-02] MEDS: LEVOTHYROXINE NA 50 MCG TABLET (FP) PO SCH (06:51)
--- NOTE | 2018-09-02 09:11 | PN ---
Progress Note (short form) - Note Progress Note: Pt seen and examined. Doing well, better. Has not done that much P.T. Her pain level is tolerable. B/L LE are still NVI. + pain in pelvis with any significant ROM Rec Likely she can be DC'd home, she may need SNF placement, as per P.T. and SWS She can be DC'd from an ortho pov, and f/u in my office in 1 week for repeat x-rays of the B/L sacral ala fractures WBAT OOB to chair every day
[2018-09-02] MEDS ORDERED: PT OWN MED DRAWER 7, Y5N ONE (09:34)
[2018-09-02] MEDS: oxyCODONE HCL 5 MG TABLET PO PRN ×3 (09:37→21:11)
[2018-09-02] MEDS: APIXABAN 5 MG TABLET PO SCH ×2 (09:38→21:12)
[2018-09-02] MEDS: CALCITONIN - SALMON SYNTHETIC 200 UNITS/SPRAY NS SCH (09:43)
--- NOTE | 2018-09-02 15:11 | PN ---
Progress Note, Physician Chief Complaint: Low back pain History of Present Illness: NAD lying in bed comfortably daughter bedside walked with PT-25 ft NS consult-conservative measure - Current Medication List Current Medications: Active Medications Acetaminophen (Tylenol -) 325 mg PO Q6H PRN PRN Reason: PAIN SCALE 6-10 Last Admin: 09/01/18 15:19 Dose: 325 mg Apixaban (Eliquis -) 5 mg PO BID [facility] Last Admin: 09/02/18 09:38 Dose: 5 mg Calcitonin (Miacalcin [place] -) 200 units NS DAILY [facility] Last Admin: 09/02/18 09:43 Dose: 1 spray Diltiazem HCl (Cardizem Cd -) 240 mg PO DAILY [facility] Last Admin: 09/02/18 09:37 Dose: 240 mg Docusate Sodium (Colace -) 100 mg PO BID PRN PRN Reason: CONSTIPATION Fentanyl (Duragesic 25mcg Patch -) 1 patch TD Q72H [facility] Stop: 09/07/18 09:03 Last Admin: 08/31/18 09:53 Dose: 1 patch Levothyroxine Sodium (Synthroid -) 50 mcg PO AM [facility] Last Admin: 09/02/18 06:51 Dose: 50 mcg Miscellaneous (Lidoderm Patch Removal) 1 each MC DAILY@2200 [facility] Last Admin: 09/01/18 21:35 Dose: Not Given Miscellaneous (Duragesic Patch Waste) 1 each MC PRN PRN PRN Reason: PAIN Oxycodone HCl (Roxicodone -) 10 mg PO Q6H PRN PRN Reason: PAIN SCALE 6-10 Last Admin: 09/02/18 09:37 Dose: 10 mg Zolpidem Tartrate (Ambien -) 5 mg PO HS PRN PRN Reason: INSOMNIA Last Admin: 09/01/18 21:34 Dose: 5 mg - Objective Vital Signs: Vital Signs Temperature 98.0 F 09/02/18 14:03 Pulse Rate 78 09/02/18 14:03 Respiratory Rate 18 09/02/18 14:03 Blood Pressure 108/64 09/02/18 14:03 O2 Sat by Pulse Oximetry (%) 99 09/02/18 04:59 Constitutional: Yes: No Distress, Calm, Cachectic Cardiovascular: Yes: Regular Rate and Rhythm Respiratory: Yes: Regular Gastrointestinal: Yes: Normal Bowel Sounds, Soft Musculoskeletal: Yes: Back Pain Extremities: Yes: WNL Edema: No Peripheral Pulses WNL: Yes Neurological: Yes: Alert, Oriented Psychiatric: Yes: Alert, Oriented Labs: CBC, BMP 08/31/18 07:14 08/31/18 07:14 Assessment/Plan (1) Right low back pain Assessment/Plan: -Orthopedic and Neurosurgery consult -Lumbar CT scan shows acute/subacute sacral fractures, small left paramedian T11 -[id number] herniation, S2-acute/subacute fx -pain control -Pt wants to go to SNF -SW notified, pt to provide with rehab preference Code(s): M54.5 - LOW BACK PAIN (2) HTN (hypertension) Assessment/Plan: -Diltiazem -low Na diet Code(s): I10 - ESSENTIAL (PRIMARY) HYPERTENSION (3) Hypothyroid Assessment/Plan: -Levothyroxine Code(s): E03.9 - HYPOTHYROIDISM, UNSPECIFIED (4) New onset atrial fibrillation Assessment/Plan: -Eliquis Code(s): I48.91 - UNSPECIFIED ATRIAL FIBRILLATION
[2018-09-02] MEDS: ACETAMINOPHEN 325 MG TABLET (FP) PO PRN (15:34)
[2018-09-02] MEDS: ZOLPIDEM TARTRATE 5 MG TABLET PO PRN (21:12)
[2018-09-02] MEDS: LIDOCAINE PATCH REMOVAL MC SCH (21:16)
[2018-09-03] MEDS: LEVOTHYROXINE NA 50 MCG TABLET (FP) PO SCH (06:35)
[2018-09-03] MEDS: fentaNYL 25mcg/hr PATCH.TD72 TD SCH (10:24)
[2018-09-03] MEDS: oxyCODONE HCL 5 MG TABLET PO PRN ×3 (10:28→23:28)
[2018-09-03] MEDS ORDERED: PT OWN MED DRAWER 7, Y5N ONE (10:28)
[2018-09-03] MEDS: CALCITONIN - SALMON SYNTHETIC 200 UNITS/SPRAY NS SCH (10:30)
[2018-09-03] MEDS: APIXABAN 5 MG TABLET PO SCH ×2 (10:31→23:28)
--- NOTE | 2018-09-03 10:37 | DS ---
Physical Examination Vital Signs: Vital Signs Temperature 98.2 F 09/03/18 07:07 Pulse Rate 89 09/03/18 07:07 Respiratory Rate 20 09/03/18 07:07 Blood Pressure 123/65 09/03/18 07:07 O2 Sat by Pulse Oximetry (%) 95 09/02/18 21:00 Findings/Remarks: Patient is an 83 y/o female with past medical history of Afib on Eliquis, HTN, hypothyroidism, and Kidney Stones. Patient was sent to ER by PCP for worsening lower back pain. She states that she has a heavy/aching pain to lower back x 1 month. Denies trauma or injury. She was seen at [place] last Wednesday for same chief complaint and received Medrol Dose pack and followed up with Orthopedist Dr. Gonzales. Patient states that pain has gotten increasingly worse and is now experiencing difficulty walking. Constitutional: Yes: No Distress, Calm, Cachectic Cardiovascular: Yes: Regular Rate and Rhythm Respiratory: Yes: Regular Gastrointestinal: Yes: Normal Bowel Sounds, Soft Musculoskeletal: Yes: Back Pain Extremities: Yes: WNL Edema: No Peripheral Pulses WNL: Yes Neurological: Yes: Alert, Oriented Psychiatric: Yes: Alert, Oriented Labs: CBC, BMP 08/31/18 07:14 08/31/18 07:14 Discharge Summary Reason For Visit: BACK PAIN Current Active Problems Afib (Acute) Right low back pain (Acute) Sacral fracture (Acute) Hospital Course: Laboratory Last Values WBC 4.6 K/mm3 (4.0-10.0) 08/31/18 07:14 RBC 4.12 M/mm3 (3.60-5.2) 08/31/18 07:14 Hgb 13.4 GM/dL (10.7-15.3) 08/31/18 07:14 Hct 38.9 % (32.4-45.2) 08/31/18 07:14 MCV 94.3 fl (80-96) 08/31/18 07:14 MCH 32.4 pg (25.7-33.7) 08/31/18 07:14 MCHC 34.4 g/dl (32.0-36.0) 08/31/18 07:14 RDW 13.1 % (11.6-15.6) 08/31/18 07:14 Plt Count 186 K/MM3 (134-434) D 08/31/18 07:14 MPV 9.1 fl (7.5-11.1) 08/31/18 07:14 Absolute Neuts (auto) 3.1 K/mm3 (1.5-8.0) 08/31/18 07:14 Neutrophils % 67.6 % (42.8-82.8) 08/31/18 07:14 Lymphocytes % 20.4 % (8-40) D 08/31/18 07:14 Monocytes % 9.8 % (3.8-10.2) 08/31/18 07:14 Eosinophils % 2.1 % (0-4.5) D 08/31/18 07:14 Basophils % 0.1 % (0-2.0) 08/31/18 07:14 Nucleated RBC % 0 % (0-0) 08/31/18 07:14 Sodium 134 mmol/L (136-145) L 08/31/18 07:14 Potassium 3.7 mmol/L (3.5-5.1) 08/31/18 07:14 Chloride 103 mmol/L (98-107) 08/31/18 07:14 Carbon Dioxide 22 mmol/L (21-32) 08/31/18 07:14 Anion Gap 9 MMOL/L (8-16) 08/31/18 07:14 BUN 29.5 mg/dL (7-18) H 08/31/18 07:14 Creatinine 1.2 mg/dL (0.55-1.3) 08/31/18 07:14 Est GFR (CKD-EPI)AfAm 48.06 08/31/18 07:14 Est GFR (CKD-EPI)NonAf 41.47 08/31/18 07:14 POC Glucometer 106 UNITS (80-120) 09/01/18 05:53 Random Glucose 91 mg/dL (74-106) 08/31/18 07:14 Calcium 8.8 mg/dL (8.5-10.1) 08/31/18 07:14 Phosphorus 3.2 mg/dL (2.5-4.9) 08/31/18 07:14 Magnesium 2.1 mg/dL (1.8-2.4) 08/31/18 07:14 Total Bilirubin 0.8 mg/dL (0.2-1) 08/31/18 07:14 AST 14 U/L (15-37) L 08/31/18 07:14 ALT 22 U/L (13-61) 08/31/18 07:14 Alkaline Phosphatase 54 U/L (45-117) 08/31/18 07:14 Total Protein 6.6 g/dl (6.4-8.2) 08/31/18 07:14 Albumin 3.0 g/dl (3.4-5.0) L 08/31/18 07:14 Total Amylase 62 U/L (25-115) 08/31/18 07:14 Lipase 313 U/L (73-393) 08/31/18 07:14 TSH 1.80 uIU/ml (0.358-3.74) 08/31/18 07:14 Vital Signs Temp 98.2 F 09/03/18 07:07 Pulse 89 09/03/18 07:07 Resp 20 09/03/18 07:07 BP 123/65 09/03/18 07:07 Pulse Ox 95 09/02/18 21:00 Intake & Output 09/02/18 09/02/18 09/03/18 11:59 23:59 11:59 Intake Total 0 340 0 Balance 0 340 0 Weight 56.744 kg 60.044 kg Intake: IV 0 0 0 saline lock 0 0 0 Oral Supplement 340 Other: Voiding Method Bedside Commode Bedside Commode # Unmeasured Voids Void 1 Bowel Movement No No No Weight Measurement [facility] Condition: Stable - Instructions Diet, Activity, Other Instructions: Apply TLSO brace when out of bed, may opt to wear it to bed. Disposition: NURSING HOME FACILITY - Home Medications Comprehensive Discharge Medication List: Ambulatory Orders Levothyroxine [Synthroid -] 50 mcg PO DAILY 10/10/12 Apixaban [Eliquis -] 5 mg PO BID #60 tablet 07/17/18 Diltiazem Cd [Cardizem Cd -] 240 mg PO DAILY #30 cap.cd.24h 07/17/18 Zolpidem Tartrate 10 mg PO DAILY 08/30/18 Acetaminophen [Tylenol .Regular Strength -] 325 mg PO Q6H PRN tablet 09/03/18 Calcitonin-[place] [Miacalcin [place] -] 200 units NS DAILY spray.pump 09/03/18 Docusate Sodium [Colace -] 100 mg PO BID PRN capsule 09/03/18 FENTANYL 25mcg PATCH [DURAGESIC 25mcg PATCH -] 1 patch TD Q72H #10 patch.td72 MDD 1 09/03/18 oxyCODONE HCL [Roxicodone -] 10 mg PO Q6H PRN #120 tablet MDD 4 09/03/18
[2018-09-03] MEDS: ACETAMINOPHEN 325 MG TABLET (FP) PO PRN ×2 (17:38→23:27)
[2018-09-03] MEDS: LIDOCAINE PATCH REMOVAL MC SCH (23:18)
[2018-09-03] MEDS: ZOLPIDEM TARTRATE 5 MG TABLET PO PRN (23:27)
[2018-09-04] MEDS: LEVOTHYROXINE NA 50 MCG TABLET (FP) PO SCH (06:36)
[2018-09-04] MEDS ORDERED: PT OWN MED DRAWER 7, Y5N ONE (09:11)
--- NOTE | 2018-09-04 09:21 | PN ---
Progress Note, Physician Chief Complaint: Low back pain History of Present Illness: NAD lying in bed comfortably walked with PT-25 ft NS consult-conservative measure Awaiting SNF placement - Current Medication List Current Medications: Active Medications Acetaminophen (Tylenol -) 325 mg PO Q6H PRN PRN Reason: PAIN SCALE 6-10 Last Admin: 09/03/18 23:27 Dose: 325 mg Apixaban (Eliquis -) 5 mg PO BID [facility] Last Admin: 09/03/18 23:28 Dose: 5 mg Calcitonin (Miacalcin [place] -) 200 units NS DAILY [facility] Last Admin: 09/03/18 10:30 Dose: 1 spray Diltiazem HCl (Cardizem Cd -) 240 mg PO DAILY [facility] Last Admin: 09/03/18 10:29 Dose: 240 mg Docusate Sodium (Colace -) 100 mg PO BID PRN PRN Reason: CONSTIPATION Fentanyl (Duragesic 25mcg Patch -) 1 patch TD Q72H [facility] Stop: 09/07/18 09:03 Last Admin: 09/03/18 10:24 Dose: 1 patch Levothyroxine Sodium (Synthroid -) 50 mcg PO AM [facility] Last Admin: 09/04/18 06:36 Dose: 50 mcg Miscellaneous (Lidoderm Patch Removal) 1 each [facility] DAILY@2200 [facility] Last Admin: 09/03/18 23:18 Dose: Not Given Miscellaneous (Duragesic Patch Waste) 1 each [facility] PRN PRN PRN Reason: PAIN Oxycodone HCl (Roxicodone -) 10 mg PO Q6H PRN PRN Reason: PAIN SCALE 6-10 Last Admin: 09/03/18 23:28 Dose: 10 mg Zolpidem Tartrate (Ambien -) 5 mg PO HS PRN PRN Reason: INSOMNIA Last Admin: 09/03/18 23:27 Dose: 5 mg - Objective Vital Signs: Vital Signs Temperature 97.6 F 09/04/18 02:00 Pulse Rate 82 09/04/18 02:00 Respiratory Rate 18 09/04/18 02:00 Blood Pressure 110/54 L 09/04/18 02:00 O2 Sat by Pulse Oximetry (%) 100 09/04/18 00:36 Constitutional: Yes: Well Nourished, No Distress, Calm Cardiovascular: Yes: Regular Rate and Rhythm Respiratory: Yes: Regular Gastrointestinal: Yes: Normal Bowel Sounds, Soft Genitourinary: Yes: WNL Musculoskeletal: Yes: Back Pain Extremities: Yes: WNL Edema: No Peripheral Pulses WNL: Yes Neurological: Yes: Alert, Oriented Psychiatric: Yes: Alert, Oriented Labs: CBC, BMP 08/31/18 07:14 08/31/18 07:14 Assessment/Plan (1) Right low back pain Assessment/Plan: -Orthopedic and Neurosurgery consult -Lumbar CT scan shows acute/subacute sacral fractures, small left paramedian T11 -[id number] herniation, S2 acute/subacute fx -pain control -Pt wants to go to SNF, notified Code(s): M54.5 - LOW BACK PAIN (2) HTN (hypertension) Assessment/Plan: -Diltiazem -low Na diet Code(s): I10 - ESSENTIAL (PRIMARY) HYPERTENSION (3) Hypothyroid Assessment/Plan: -Levothyroxine Code(s): E03.9 - HYPOTHYROIDISM, UNSPECIFIED (4) New onset atrial fibrillation Assessment/Plan: -Eliquis Code(s): I48.91 - UNSPECIFIED ATRIAL FIBRILLATION SNF placement
[2018-09-04] MEDS: APIXABAN 5 MG TABLET PO SCH ×2 (09:41→22:40)
[2018-09-04] MEDS: CALCITONIN - SALMON SYNTHETIC 200 UNITS/SPRAY NS SCH (09:41)
[2018-09-04] MEDS: oxyCODONE HCL 5 MG TABLET PO PRN ×3 (10:05→22:38)
[2018-09-04] MEDS: ACETAMINOPHEN 325 MG TABLET (FP) PO PRN ×2 (16:09→22:40)
[2018-09-04 19:02] VITALS: BMI 20.5
[2018-09-04] MEDS ORDERED: LIDOCAINE 5% TOPICAL PATCH TP ONE (20:00)
[2018-09-04] MEDS ORDERED: LIDOCAINE PATCH REMOVAL MC SCH (22:00)
[2018-09-04] MEDS: LIDOCAINE PATCH REMOVAL MC SCH ×2 (22:35)
[2018-09-04] MEDS: ZOLPIDEM TARTRATE 5 MG TABLET PO PRN (23:27)
[2018-09-05] MEDS: LEVOTHYROXINE NA 50 MCG TABLET (FP) PO SCH (06:00)
--- NOTE | 2018-09-05 08:05 | DS ---
Physical Examination Vital Signs: Vital Signs Temperature 97.7 F 09/05/18 06:00 Pulse Rate 93 H 09/05/18 06:00 Respiratory Rate 18 09/05/18 06:00 Blood Pressure 132/70 09/05/18 06:00 O2 Sat by Pulse Oximetry (%) 98 09/04/18 21:00 Cardiovascular: Yes: Regular Rate and Rhythm Respiratory: Yes: Regular, CTA Bilaterally Gastrointestinal: Yes: Normal Bowel Sounds, Soft Musculoskeletal: Yes: Back Pain, Muscle Pain Labs: CBC, BMP 08/31/18 07:14 08/31/18 07:14 Discharge Summary Reason For Visit: BACK PAIN Current Active Problems Afib (Acute) Right low back pain (Acute) Sacral fracture (Acute) Hospital Course: Patient is an 83 y/o female with past medical history of Afib on Eliquis, HTN, hypothyroidism, and Kidney Stones. Patient was sent to ER by PCP for worsening lower back pain. She states that she has a heavy/aching pain to lower back x 1 month. Denies trauma or injury. She was seen at [place] last Wednesday for same chief complaint and received Medrol Dose pack and followed up with Orthopedist Dr. Gonzales. Patient states that pain has gotten increasingly worse and is now experiencing difficulty walking. (1) Right low back pain Assessment/Plan: -Orthopedic and Neurosurgery consult -Lumbar CT scan shows acute/subacute sacral fractures, small left paramedian T11 -[id number] herniation, S2 acute/subacute fx -pain control -Pt wants to go to SNF, SW notified Code(s): M54.5 - LOW BACK PAIN (2) HTN (hypertension) Assessment/Plan: -Diltiazem -low Na diet Code(s): I10 - ESSENTIAL (PRIMARY) HYPERTENSION (3) Hypothyroid Assessment/Plan: -Levothyroxine Code(s): E03.9 - HYPOTHYROIDISM, UNSPECIFIED (4) New onset atrial fibrillation Assessment/Plan: -Eliquis Code(s): I48.91 - UNSPECIFIED ATRIAL FIBRILLATION SNF placement Condition: Stable - Instructions Diet, Activity, Other Instructions: Apply TLSO brace when out of bed, may opt to wear it to bed. Disposition: RESIDENTIAL FACILITY - Home Medications Comprehensive Discharge Medication List: Ambulatory Orders Levothyroxine [Synthroid -] 50 mcg PO DAILY 10/10/12 Apixaban [Eliquis -] 5 mg PO BID #60 tablet 07/17/18 Diltiazem Cd [Cardizem Cd -] 240 mg PO DAILY #30 cap.cd.24h 07/17/18 Zolpidem Tartrate 10 mg PO DAILY 08/30/18 Acetaminophen [Tylenol .Regular Strength -] 325 mg PO Q6H PRN tablet 09/03/18 Calcitonin-[place] [Miacalcin [place] -] 200 units NS DAILY spray.pump 09/03/18 Docusate Sodium [Colace -] 100 mg PO BID PRN capsule 09/03/18 FENTANYL 25mcg PATCH [DURAGESIC 25mcg PATCH -] 1 patch TD Q72H #10 patch.td72 MDD 1 09/03/18 oxyCODONE HCL [Roxicodone -] 10 mg PO Q6H PRN #120 tablet MDD 4 09/03/18
[2018-09-05] MEDS ORDERED: PT OWN MED DRAWER 7, Y5N ONE (09:25)
[2018-09-05] MEDS: CALCITONIN - SALMON SYNTHETIC 200 UNITS/SPRAY NS SCH (09:41)
[2018-09-05] MEDS: APIXABAN 5 MG TABLET PO SCH ×2 (09:41→21:25)
[2018-09-05] MEDS: ACETAMINOPHEN 325 MG TABLET (FP) PO PRN ×2 (10:20→16:39)
[2018-09-05] MEDS: oxyCODONE HCL 5 MG TABLET PO PRN ×3 (10:21→22:38)
[2018-09-05] MEDS: LIDOCAINE PATCH REMOVAL MC SCH (21:27)
[2018-09-05] MEDS: ZOLPIDEM TARTRATE 5 MG TABLET PO PRN (22:39)
[2018-09-06] MEDS: LEVOTHYROXINE NA 50 MCG TABLET (FP) PO SCH (06:28)
[2018-09-06] MEDS ORDERED: FENTANYL PATCH WASTE MC PRN (08:38)
--- NOTE | 2018-09-06 08:39 | DS ---
Physical Examination Vital Signs: Vital Signs Temperature 98.2 F 09/06/18 06:00 Pulse Rate 81 09/06/18 06:00 Respiratory Rate 18 09/06/18 06:00 Blood Pressure 113/59 L 09/06/18 06:00 O2 Sat by Pulse Oximetry (%) 98 09/05/18 20:16 Cardiovascular: Yes: S1, S2 Respiratory: Yes: Regular, CTA Bilaterally Gastrointestinal: Yes: Normal Bowel Sounds, Soft Labs: CBC, BMP 08/31/18 07:14 08/31/18 07:14 Discharge Summary Reason For Visit: BACK PAIN Current Active Problems Afib (Acute) Right low back pain (Acute) Sacral fracture (Acute) Hospital Course: Patient is an 83 y/o female with past medical history of Afib on Eliquis, HTN, hypothyroidism, and Kidney Stones. Patient was sent to ER by PCP for worsening lower back pain. She states that she has a heavy/aching pain to lower back x 1 month. Denies trauma or injury. She was seen at [place] last Wednesday for same chief complaint and received Medrol Dose pack and followed up with Orthopedist Dr. Gonzales. Patient states that pain has gotten increasingly worse and is now experiencing difficulty walking. (1) Right low back pain Assessment/Plan: -Orthopedic and Neurosurgery consult -Lumbar CT scan shows acute/subacute sacral fractures, small left paramedian T11 -[id number] herniation, S2 acute/subacute fx -pain control--Increase Duragesic 50 -Pt wants to go to SNF, SW notified Code(s): M54.5 - LOW BACK PAIN (2) HTN (hypertension) Assessment/Plan: -Diltiazem -low Na diet Code(s): I10 - ESSENTIAL (PRIMARY) HYPERTENSION (3) Hypothyroid Assessment/Plan: -Levothyroxine Code(s): E03.9 - HYPOTHYROIDISM, UNSPECIFIED (4) New onset atrial fibrillation Assessment/Plan: -Eliquis Code(s): I48.91 - UNSPECIFIED ATRIAL FIBRILLATION SNF placement--[facility] Condition: Stable - Instructions Diet, Activity, Other Instructions: Apply TLSO brace when out of bed, may opt to wear it to bed. Disposition: CARE HOME FACILITY - Home Medications Comprehensive Discharge Medication List: Ambulatory Orders Levothyroxine [Synthroid -] 50 mcg PO DAILY 10/10/12 Apixaban [Eliquis -] 5 mg PO BID #60 tablet 07/17/18 Diltiazem Cd [Cardizem Cd -] 240 mg PO DAILY #30 cap.cd.24h 07/17/18 Zolpidem Tartrate 10 mg PO DAILY 08/30/18 Acetaminophen [Tylenol .Regular Strength -] 325 mg PO Q6H PRN tablet 09/03/18 Calcitonin-[place] [Miacalcin [place] -] 200 units NS DAILY spray.pump 09/03/18 Docusate Sodium [Colace -] 100 mg PO BID PRN capsule 09/03/18 FENTANYL 25mcg PATCH [DURAGESIC 25mcg PATCH -] 1 patch TD Q72H #10 patch.td72 MDD 1 09/03/18 oxyCODONE HCL [Roxicodone -] 10 mg PO Q6H PRN #120 tablet MDD 4 09/03/18
[2018-09-06] MEDS ORDERED: fentaNYL 50mcg/hr PATCH.TD72 TD SCH (08:45)
[2018-09-06] MEDS ORDERED: PT OWN MED DRAWER 7, Y5N ONE ×2 (08:45→09:23)
[2018-09-06] MEDS: oxyCODONE HCL 5 MG TABLET PO PRN ×2 (08:48→14:51)
[2018-09-06] MEDS: ACETAMINOPHEN 325 MG TABLET (FP) PO PRN ×2 (08:49→14:52)
[2018-09-06] MEDS: APIXABAN 5 MG TABLET PO SCH (09:24)
[2018-09-06] MEDS: CALCITONIN - SALMON SYNTHETIC 200 UNITS/SPRAY NS SCH (09:34)
[2018-09-06 15:19] VITALS: BP 131/67; PULSE 78; TEMP 97.8
== END 2018-09-06 16:26 | DRG 552 ==
LOC: JER 12:43 → JERBED 13:28 → J8W 16:18
PROVIDERS: ADMIT Family Medicine; ATTEND Family Medicine
DX: S32.19XA Other fracture of sacrum, initial encounter for closed fracture (principal); S22.088A Other fracture of T11-T12 vertebra, initial encounter for closed fracture; E03.9 Hypothyroidism, unspecified; I48.91 Unspecified atrial fibrillation; Y92.9 Unspecified place or not applicable; R26.9 Unspecified abnormalities of gait and mobility; Z87.442 Personal history of urinary calculi; M54.5 Low back pain; M51.24 Other intervertebral disc displacement, thoracic region; I10 Essential (primary) hypertension; X58.XXXA Exposure to other specified factors, initial encounter; Y93.9 Activity, unspecified
CPT/HCPCS: 36415; 72131-TC; 80053; 82150; 82962; 83690; 83735; 84100; 84436; 84443; 85025; 97116-GP; 97162-GP; 99282-25; J0131

== ENCOUNTER 2020-08-13 04:40 | Day surgery (SDC) | payer BC ==
[2020-08-12 14:20] VITALS: BMI 21.7
[2020-08-13 10:23] LABS: HEMATOCRIT 32.7 % (32.4-45.2); HEMOGLOBIN 10.9 GM/dL (10.7-15.3); MCH 30.7 pg (25.7-33.7); MCHC 33.4 g/dl (32.0-36.0); MEAN CELL VOLUME 92.1 fl (80-96); MEAN PLT VOLUME 9.7 fl (7.5-11.1); MONO % 8.4 % (3.8-10.2); NEUT % 71.6 % (42.8-82.8); PLATELET COUNT 228 10^3/uL (134-434); RBC 3.56 M/mm3 (3.60-5.2); RDW 13.7 % (11.6-15.6); WHITE BLOOD COUNT 5.7 K/mm3 (4.0-10.0)
[2020-08-13 10:54] LABS: INR 1.06 (0.83-1.09)
[2020-08-13] MEDS ORDERED: SODIUM CHLORIDE 500 ML IV SCH (12:30)
[2020-08-13 16:42] VITALS: BP 130/65; PULSE 80; TEMP 98
== END 2020-08-13 16:50 | disposition home or self-care (01) ==
LOC: JRADIR 04:40
PROVIDERS: ATTEND Internal Medicine Hematology & Oncology
PROC: 0BBF3ZX Excision of Right Lower Lung Lobe, Percutaneous Approach, Diagnostic (ICD-10-PCS; principal; 2020-08-13)
DX: C34.31 Malignant neoplasm of lower lobe, right bronchus or lung (principal)
CPT/HCPCS: 32408; 36415; 71046-TC-FY; 85025; 85610

== ENCOUNTER 2020-08-29 07:33 | Day surgery (SDC) | payer BC, OTHER ==
[2020-08-27 12:57] VITALS: BMI 20.9
[2020-08-29] MEDS ORDERED: PROPOFOL 20 ML ONE ×2 (08:00)
[2020-08-29] MEDS ORDERED: LIDOCAINE HCL/PF 2% SDV 5ML VIAL ONE (08:00)
[2020-08-29 09:40] VITALS: BP 131/76; PULSE 80; TEMP 97.7
== END 2020-08-29 09:45 | disposition home or self-care (01) ==
LOC: FASU-ENDO 07:33
PROVIDERS: ATTEND Internal Medicine Gastroenterology
PROC: 0DB68ZX Excision of Stomach, Via Natural or Artificial Opening Endoscopic, Diagnostic (ICD-10-PCS; principal; 2020-08-29 08:32)
DX: K29.50 Unspecified chronic gastritis without bleeding (principal); K31.9 Disease of stomach and duodenum, unspecified; B96.81 Helicobacter pylori [H. pylori] as the cause of diseases classified elsewhere; R93.3 Abnormal findings on diagnostic imaging of other parts of digestive tract
CPT/HCPCS: 88305-TC; 88342-TC

== ENCOUNTER 2021-04-11 07:26 | Day surgery (SDC) | payer BC ==
[2021-04-11] MEDS ORDERED: POTASSIUM CHLORIDE IVPB ONE (10:00)
[2021-04-11] MEDS ORDERED: [UNRECOGNIZED DRUG - OTHER] IVPB ONE (10:00)
[2021-04-11] MEDS ORDERED: MAGNESIUM SULFATE IVPB ONE (10:00)
[2021-04-11] MEDS ORDERED: DEXTROSE IVPB ONE (10:00)
[2021-04-11] MEDS ORDERED: DENOSUMAB 120 MG/1.7 ML VIAL SQ ONE (10:30)
[2021-04-11 18:35] VITALS: BP 112/78; PULSE 98; TEMP 98.2
== END 2021-04-11 17:00 | disposition home or self-care (01) ==
LOC: JONCCHEMO 07:26
PROVIDERS: ATTEND Internal Medicine Hematology & Oncology
PROC: 3E01305 Introduction of Other Antineoplastic into Subcutaneous Tissue, Percutaneous Approach (ICD-10-PCS; principal; 2021-04-11)
PROC: 3E0337Z Introduction of Electrolytic and Water Balance Substance into Peripheral Vein, Percutaneous Approach (ICD-10-PCS; 2021-04-11)
DX: Z51.11 Encounter for antineoplastic chemotherapy (principal); C34.31 Malignant neoplasm of lower lobe, right bronchus or lung
CPT/HCPCS: 96360; 96361; 96402; J0897

== ENCOUNTER 2021-04-23 13:26 | Emergency (ER) | payer BC ==
[2021-04-23 13:53] VITALS: TEMP 98.7; BMI 17.2
[2021-04-23] MEDS ORDERED: ACETAMINOPHEN 1000 MG/100 ML BAG IVPB ONE (14:59)
[2021-04-23] MEDS ORDERED: HYDROmorphone HCL CARPU-JECT 2 MG/1 ML DISP.SYRIN IVPUSH ONE (16:16)
[2021-04-23] MEDS ORDERED: HYDROmorphone HCl 2 MG/ML VIAL ONE (16:25)
[2021-04-23 16:26] LABS: BASO % 0.8 % (0-2.0); EOS % 0.1 % (0-4.5); HEMATOCRIT 31.5 % (32.4-45.2); HEMOGLOBIN 10.4 GM/dL (10.7-15.3); LYMPH % 10.2 % (8-40); MCH 30.7 pg (25.7-33.7); MCHC 33.1 g/dl (32.0-36.0); MEAN CELL VOLUME 92.7 fl (80-96); MEAN PLT VOLUME 8.6 fl (7.5-11.1); MONO % 7.9 % (3.8-10.2); PLATELET COUNT 284 10^3/uL (134-434); RDW 16.5 % (11.6-15.6); WHITE BLOOD COUNT 7.5 K/mm3 (4.0-10.0)
[2021-04-23 16:45] LABS: CALCIUM 8.3 mg/dL (8.5-10.1)
[2021-04-23 16:46] LABS: ALBUMIN 2.6 g/dl (3.4-5.0); BLOOD UREA NITROGEN 12.5 mg/dL (7-18)
[2021-04-23 16:51] LABS: BILIRUBIN,TOTAL 0.4 mg/dL (0.2-1); TOT PROT 6.8 g/dl (6.4-8.2)
[2021-04-23 16:54] LABS: N-TERMINAL BNP 1944.4 pg/ml (5-450)
[2021-04-23 18:59] VITALS: BP 110/55; PULSE 90
== END 2021-04-23 19:30 ==
LOC: JER 13:26
PROC: 3E033GC Introduction of Other Therapeutic Substance into Peripheral Vein, Percutaneous Approach (ICD-10-PCS; principal; 2021-04-23)
DX: M25.422 Effusion, left elbow (principal)
CPT/HCPCS: 36415; 71045-TC-FY; 71260-TC; 73201-TC-RT; 80053; 83735; 83880; 85025; 93970-TC; 93971; 99285-25; C9803; Q9967; U0003; U0005

== ENCOUNTER 2021-05-13 11:51 | Observation (INO) | payer BC ==
[2021-05-13 13:01] LABS: BASO % 0.6 % (0-2.0); EOS % 0.1 % (0-4.5); HEMATOCRIT 32.6 % (32.4-45.2); HEMOGLOBIN 10.7 GM/dL (10.7-15.3); LYMPH % 6.3 % (8-40); MCH 30.1 pg (25.7-33.7); MCHC 32.8 g/dl (32.0-36.0); MEAN CELL VOLUME 91.7 fl (80-96); MEAN PLT VOLUME 8.8 fl (7.5-11.1); MONO % 7.5 % (3.8-10.2); NEUT % 85.5 % (42.8-82.8); PLATELET COUNT 421 10^3/uL (134-434); RBC 3.56 M/mm3 (3.60-5.2); RDW 15.2 % (11.6-15.6); WHITE BLOOD COUNT 9.1 K/mm3 (4.0-10.0)
[2021-05-13 13:04] LABS: INR 1.8 (0.83-1.09); PROTHROMBIN TIME (PATIENT) 20.8 SEC (9.7-13.0)
[2021-05-13 13:07] LABS: ACTIVATED PTT 33.2 SECONDS (25.2-36.5)
[2021-05-13 13:17] LABS: CALCIUM 8.5 mg/dL (8.5-10.1)
[2021-05-13 13:18] LABS: ALBUMIN 2.4 g/dl (3.4-5.0); BLOOD UREA NITROGEN 13.1 mg/dL (7-18); MAGNESIUM 2.1 mg/dL (1.8-2.4)
[2021-05-13 13:21] LABS: CREATININE 0.9 mg/dL (0.55-1.3); PHOSPHOROUS 2.1 mg/dL (2.5-4.9)
[2021-05-13 13:22] LABS: TOT PROT 6.7 g/dl (6.4-8.2)
[2021-05-13 13:23] LABS: BILIRUBIN,TOTAL 0.4 mg/dL (0.2-1)
[2021-05-13] MEDS ORDERED: ACETAMINOPHEN 1000 MG/100 ML BAG IVPB ONE (15:15)
[2021-05-13] MEDS ORDERED: ACETAMINOPHEN INJECTION 100 ML IVPB ONE (15:19)
[2021-05-13] MEDS: SODIUM CHLORIDE 1,000 ML IV SCH (15:28)
[2021-05-13] MEDS ORDERED: HYDROmorphone HCL CARPU-JECT 2 MG/1 ML DISP.SYRIN IVPB ONE (15:31)
[2021-05-13] MEDS ORDERED: GABAPENTIN 300 MG CAPSULE PO ONE (15:34)
[2021-05-13] MEDS ORDERED: HYDROmorphone HCl 2 MG/ML VIAL ONE (15:39)
[2021-05-13] MEDS ORDERED: GABAPENTIN 100 MG CAPSULE ONE (15:40)
[2021-05-13] MEDS: ACETAMINOPHEN 1000 MG/100 ML BAG IVPB PRN (22:16)
[2021-05-13 23:53] VITALS: BMI 17.6
[2021-05-14] MEDS: ACETAMINOPHEN 1000 MG/100 ML BAG IVPB PRN ×2 (03:38→09:58)
[2021-05-14 08:21] LABS: HEMATOCRIT 31.3 % (32.4-45.2); HEMOGLOBIN 10.2 GM/dL (10.7-15.3); MCH 29.8 pg (25.7-33.7); MCHC 32.5 g/dl (32.0-36.0); MEAN CELL VOLUME 91.6 fl (80-96); MEAN PLT VOLUME 8.5 fl (7.5-11.1); PLATELET COUNT 365 10^3/uL (134-434); RBC 3.42 M/mm3 (3.60-5.2); RDW 15.3 % (11.6-15.6); WHITE BLOOD COUNT 8.4 K/mm3 (4.0-10.0)
[2021-05-14] MEDS: oxyCODONE HCL 5 MG TABLET PO PRN ×2 (08:25→14:58)
[2021-05-14] MEDS: SODIUM CHLORIDE 1,000 ML IV SCH (09:57)
[2021-05-14 10:36] LABS: BLOOD UREA NITROGEN 10.4 mg/dL (7-18); CALCIUM 8.4 mg/dL (8.5-10.1)
[2021-05-14 10:37] LABS: ALBUMIN 2.3 g/dl (3.4-5.0)
[2021-05-14 10:40] LABS: CREATININE 0.8 mg/dL (0.55-1.3)
[2021-05-14 10:41] LABS: BILIRUBIN,TOTAL 0.4 mg/dL (0.2-1); TOT PROT 6.1 g/dl (6.4-8.2)
[2021-05-14 14:44] VITALS: BP 109/56; PULSE 89; TEMP 97.4
[2021-05-14 19:50] LABS: PH,URINE 5.5 (5.0-8.0); URINE APPEARANCE CLEAR; URINE BILIRUBIN NEGATIVE (NEGATIVE); URINE COLOR YELLOW; URINE GLUCOSE (UA) NEGATIVE (NEGATIVE); URINE KETONE TRACE (NEGATIVE); URINE LEUK ESTERASE NEGATIVE (NEGATIVE); URINE NITRITE NEGATIVE (NEGATIVE); URINE PROTEIN NEGATIVE (NEGATIVE); URINE UROBILINOGEN 0.2 mg/dL (0.2-1.0)
[2021-05-15] MEDS ORDERED: LEVOTHYROXINE NA 50 MCG TABLET (FP) PO SCH (07:00)
[2021-05-15] MEDS ORDERED: POLYETHYLENE GLYCOL (HEALTHYLAX) 3350 17 GM PACKET PO SCH (10:00)
== END 2021-05-14 17:38 | disposition home or self-care (01) ==
LOC: JER 11:51 → INTOOBSV 15:40 → JERBED 15:40 → UNDOADMOB 15:40 → J6S 18:57 → JERBED 18:57 → J6S 05-14 12:16
PROVIDERS: ADMIT Family Medicine; ATTEND Family Medicine
PROC: 3E033NZ Introduction of Analgesics, Hypnotics, Sedatives into Peripheral Vein, Percutaneous Approach (ICD-10-PCS; principal; 2021-05-14)
PROC: 3E0337Z Introduction of Electrolytic and Water Balance Substance into Peripheral Vein, Percutaneous Approach (ICD-10-PCS; 2021-05-14)
DX: K92.2 Gastrointestinal hemorrhage, unspecified (principal); R53.1 Weakness; C34.92 Malignant neoplasm of unspecified part of left bronchus or lung; M54.50 Low back pain, unspecified; G89.29 Other chronic pain; K21.9 Gastro-esophageal reflux disease without esophagitis; I48.91 Unspecified atrial fibrillation; I10 Essential (primary) hypertension; N20.0 Calculus of kidney; E03.9 Hypothyroidism, unspecified; Z79.01 Long term (current) use of anticoagulants; J44.9 Chronic obstructive pulmonary disease, unspecified; R06.02 Shortness of breath; R07.9 Chest pain, unspecified
CPT/HCPCS: 36415; 71045-TC-FY; 80053; 81003; 82272; 83605; 83735; 84100; 84443; 85025; 85027; 85610; 85730; 86850; 86900; 86901; 87040; 87086; 93005; 93010; 93970-TC; 96374; 96375; 96376; 99285-25; C9803; G0378; U0003; U0005

== ENCOUNTER 2021-06-05 11:19 | Inpatient (IN) | payer BC ==
[2021-06-05 13:04] LABS: BASO % 0.3 % (0-2.0); HEMATOCRIT 30.7 % (32.4-45.2); HEMOGLOBIN 10.3 GM/dL (10.7-15.3); MCH 30.1 pg (25.7-33.7); MCHC 33.5 g/dl (32.0-36.0); MEAN CELL VOLUME 89.9 fl (80-96); MEAN PLT VOLUME 8.3 fl (7.5-11.1); MONO % 6.8 % (3.8-10.2); NEUT % 88.9 % (42.8-82.8); PLATELET COUNT 325 10^3/uL (134-434); RBC 3.41 M/mm3 (3.60-5.2); RDW 15.4 % (11.6-15.6); WHITE BLOOD COUNT 10.6 K/mm3 (4.0-10.0)
[2021-06-05 13:31] LABS: ALBUMIN 2.4 g/dl (3.4-5.0); BLOOD UREA NITROGEN 15.4 mg/dL (7-18); CALCIUM 8.4 mg/dL (8.5-10.1)
[2021-06-05 13:32] LABS: INR 2.22 (0.83-1.09); PROTHROMBIN TIME (PATIENT) 25.7 SEC (9.7-13.0)
[2021-06-05 13:34] LABS: ACTIVATED PTT 33.9 SECONDS (25.2-36.5)
[2021-06-05 13:35] LABS: BILIRUBIN,TOTAL 0.6 mg/dL (0.2-1); CREATININE 0.9 mg/dL (0.55-1.3); TOT PROT 6.4 g/dl (6.4-8.2)
[2021-06-05 13:39] LABS: N-TERMINAL BNP 2733.8 pg/ml (5-450)
[2021-06-05 14:13] LABS: MAGNESIUM 2.1 mg/dL (1.8-2.4)
[2021-06-05 14:17] LABS: PHOSPHOROUS 1.9 mg/dL (2.5-4.9)
[2021-06-05 15:26] LABS: URINE APPEARANCE Clear; URINE BILIRUBIN 1+ (NEGATIVE); URINE COLOR Yellow; URINE GLUCOSE (UA) Negative (NEGATIVE); URINE KETONE Negative (NEGATIVE); URINE LEUK ESTERASE Negative (NEGATIVE); URINE NITRITE Negative (NEGATIVE); URINE PROTEIN Trace (NEGATIVE)
[2021-06-05] MEDS ORDERED: morphine CARPU-JECT 4 MG/1 ML DISP.SYRIN IVPUSH ONE (15:36)
[2021-06-05 15:47] LABS: EPI CELLS 15 /uL (0-25.1); HYALINE CASTS 2 /uL (0-3.1); URINE BACTERIA 57 /uL (0-1359); URINE RBC 44 /uL (0-23.9); URINE WBC 11 /uL (0-25.8)
[2021-06-05] MEDS ORDERED: morphine SULFATE 4 MG/ML VIAL ONE (15:52)
[2021-06-05] MEDS ORDERED: D5-1/2NS+20 MEQ KCL - 20 MEQ/1,000 ML INFUS.BAG IV SCH (16:45)
[2021-06-05 17:55] VITALS: BMI 18.8
[2021-06-05] MEDS: oxyCODONE HCL 5 MG TABLET PO SCH ×2 (18:16→23:39)
[2021-06-05] MEDS: GABAPENTIN 400 MG CAPSULE PO SCH (21:18)
[2021-06-05] MEDS ORDERED: oxyCODONE HCL 5 MG TABLET PO SCH (22:00)
[2021-06-05] MEDS ORDERED: APIXABAN 5 MG TABLET PO SCH (22:00)
[2021-06-05] MEDS ORDERED: APIXABAN 2.5 MG TABLET PO SCH (22:00)
[2021-06-05] MEDS ORDERED: ZOLPIDEM TARTRATE 5 MG TABLET PO SCH (22:00)
[2021-06-05] MEDS ORDERED: ZOLPIDEM TARTRATE 5 MG TABLET PO PRN (22:00)
[2021-06-06] MEDS: oxyCODONE HCL 5 MG TABLET PO SCH (06:15)
[2021-06-06] MEDS: LEVOTHYROXINE NA 50 MCG TABLET (FP) PO SCH (06:22)
[2021-06-06 09:18] LABS: BASO % 0.3 % (0-2.0); EOS % 0.3 % (0-4.5); HEMATOCRIT 29.5 % (32.4-45.2); HEMOGLOBIN 9.6 GM/dL (10.7-15.3); LYMPH % 6.3 % (8-40); MCH 29.5 pg (25.7-33.7); MCHC 32.5 g/dl (32.0-36.0); MEAN CELL VOLUME 90.7 fl (80-96); MEAN PLT VOLUME 9.1 fl (7.5-11.1); MONO % 6.9 % (3.8-10.2); NEUT % 86.2 % (42.8-82.8); PLATELET COUNT 333 10^3/uL (134-434); RBC 3.25 M/mm3 (3.60-5.2); RDW 15.5 % (11.6-15.6); WHITE BLOOD COUNT 11.2 K/mm3 (4.0-10.0)
[2021-06-06] MEDS: GABAPENTIN 300 MG CAPSULE PO SCH ×2 (09:33→13:02)
[2021-06-06] MEDS: HYDROmorphone HCl 2 MG/ML VIAL IM PRN ×3 (09:34→17:40)
[2021-06-06 09:35] LABS: CALCIUM 8.2 mg/dL (8.5-10.1)
[2021-06-06 09:36] LABS: ALBUMIN 2.1 g/dl (3.4-5.0); BLOOD UREA NITROGEN 12.1 mg/dL (7-18); MAGNESIUM 2.2 mg/dL (1.8-2.4)
[2021-06-06 09:39] LABS: CREATININE 0.7 mg/dL (0.55-1.3)
[2021-06-06 09:40] LABS: BILIRUBIN,TOTAL 0.7 mg/dL (0.2-1); TOT PROT 5.8 g/dl (6.4-8.2)
[2021-06-06] MEDS: ALBUTEROL SO4 2.5/IPRATROPIUM 0.5 INH SOL 3 ML VIAL.NEB. NEB SCH ×3 (11:26→20:04)
[2021-06-06] MEDS: GABAPENTIN 400 MG CAPSULE PO SCH (21:29)
[2021-06-07] MEDS: guaiFENesin 200 MG/10 ML 10 ML UNIT-DOSE CUPS PO PRN ×2 (01:35→21:19)
[2021-06-07] MEDS: HYDROmorphone HCl 2 MG/ML VIAL IM PRN ×4 (03:53→21:21)
[2021-06-07] MEDS: LEVOTHYROXINE NA 50 MCG TABLET (FP) PO SCH (06:14)
[2021-06-07] MEDS: ALBUTEROL SO4 2.5/IPRATROPIUM 0.5 INH SOL 3 ML VIAL.NEB. NEB SCH ×4 (07:36→19:40)
[2021-06-07] MEDS: GABAPENTIN 300 MG CAPSULE PO SCH ×2 (09:26→13:04)
[2021-06-07] MEDS: APIXABAN 5 MG TABLET PO SCH ×2 (10:43→21:19)
[2021-06-07] MEDS: GABAPENTIN 400 MG CAPSULE PO SCH (21:19)
[2021-06-08] MEDS: guaiFENesin 200 MG/10 ML 10 ML UNIT-DOSE CUPS PO PRN (06:13)
[2021-06-08] MEDS: LEVOTHYROXINE NA 50 MCG TABLET (FP) PO SCH (06:13)
[2021-06-08] MEDS: ALBUTEROL SO4 2.5/IPRATROPIUM 0.5 INH SOL 3 ML VIAL.NEB. NEB SCH ×4 (07:27→20:34)
[2021-06-08] MEDS: HYDROmorphone HCl 2 MG/ML VIAL IM PRN ×3 (09:23→18:33)
[2021-06-08] MEDS: GABAPENTIN 300 MG CAPSULE PO SCH ×2 (09:24→13:26)
[2021-06-08 11:40] LABS: INR 1.78 (0.83-1.09); PROTHROMBIN TIME (PATIENT) 20.6 SEC (9.7-13.0)
[2021-06-08 16:07] LABS: SARS-CoV-2 NAA Not Detected (Not Detected)
[2021-06-08] MEDS: GABAPENTIN 400 MG CAPSULE PO SCH (21:33)
[2021-06-09] MEDS: LEVOTHYROXINE NA 50 MCG TABLET (FP) PO SCH (06:15)
[2021-06-09] MEDS: HYDROmorphone HCl 2 MG/ML VIAL IM PRN (06:15)
[2021-06-09] MEDS: ALBUTEROL SO4 2.5/IPRATROPIUM 0.5 INH SOL 3 ML VIAL.NEB. NEB SCH ×4 (08:15→20:40)
[2021-06-09] MEDS: MULTIVITAMINS (DAILY MVI) TABLET (FP) PO SCH (09:18)
[2021-06-09] MEDS: GABAPENTIN 300 MG CAPSULE PO SCH ×2 (09:18→14:42)
[2021-06-09] MEDS: ZINC SULFATE 220 MG CAPSULE (FP) PO SCH (09:18)
[2021-06-09] MEDS: AMINO ACIDS/PROTEIN HYDROLYS 30 ML LIQUID.PKT PO SCH (09:18)
[2021-06-09 10:18] LABS: BASO % 0.3 % (0-2.0); EOS % 0.2 % (0-4.5); HEMATOCRIT 29.8 % (32.4-45.2); HEMOGLOBIN 9.8 GM/dL (10.7-15.3); LYMPH % 5.1 % (8-40); MCH 29.9 pg (25.7-33.7); MCHC 33.1 g/dl (32.0-36.0); MEAN CELL VOLUME 90.4 fl (80-96); MONO % 7.2 % (3.8-10.2); NEUT % 87.2 % (42.8-82.8); PLATELET COUNT 343 10^3/uL (134-434); RBC 3.29 M/mm3 (3.60-5.2); RDW 15.4 % (11.6-15.6); WHITE BLOOD COUNT 10.5 K/mm3 (4.0-10.0)
[2021-06-09 10:22] LABS: INR 1.34 (0.83-1.09); PROTHROMBIN TIME (PATIENT) 15.4 SEC (9.7-13.0)
[2021-06-09 10:44] LABS: CALCIUM 8.1 mg/dL (8.5-10.1)
[2021-06-09 10:45] LABS: BLOOD UREA NITROGEN 13.3 mg/dL (7-18)
[2021-06-09 10:48] LABS: CREATININE 0.6 mg/dL (0.55-1.3)
[2021-06-09 10:49] LABS: BILIRUBIN,TOTAL 0.6 mg/dL (0.2-1); TOT PROT 6.1 g/dl (6.4-8.2)
[2021-06-09] MEDS: HYDROmorphone HCl 2 MG/ML VIAL IVPB PRN ×2 (10:59→20:15)
[2021-06-09 15:50] LABS: BF WBC & OTHER NUCLEATED CELLS 246 /mm3
[2021-06-09 16:18] LABS: BODY FLUID MACROPHAGES 12 %; BODY FLUID MONOCYTE 16 %
[2021-06-09] MEDS: GABAPENTIN 400 MG CAPSULE PO SCH (21:09)
[2021-06-10] MEDS: LEVOTHYROXINE NA 50 MCG TABLET (FP) PO SCH (06:14)
[2021-06-10] MEDS: HYDROmorphone HCl 2 MG/ML VIAL IVPB PRN ×3 (06:29→18:48)
[2021-06-10] MEDS: ALBUTEROL SO4 2.5/IPRATROPIUM 0.5 INH SOL 3 ML VIAL.NEB. NEB SCH ×4 (08:20→19:59)
[2021-06-10] MEDS ORDERED: FENTANYL PATCH WASTE TD PRN (08:34)
[2021-06-10] MEDS ORDERED: fentaNYL 25mcg/hr PATCH.TD72 TD SCH (08:45)
[2021-06-10] MEDS: MULTIVITAMINS (DAILY MVI) TABLET (FP) PO SCH (09:47)
[2021-06-10] MEDS: ZINC SULFATE 220 MG CAPSULE (FP) PO SCH (09:47)
[2021-06-10] MEDS: AMINO ACIDS/PROTEIN HYDROLYS 30 ML LIQUID.PKT PO SCH (09:47)
[2021-06-10] MEDS: GABAPENTIN 300 MG CAPSULE PO SCH ×2 (09:47→13:33)
[2021-06-10] MEDS: GABAPENTIN 400 MG CAPSULE PO SCH (22:30)
[2021-06-11] MEDS: HYDROmorphone HCl 2 MG/ML VIAL IVPB PRN ×4 (00:50→18:35)
[2021-06-11] MEDS: LEVOTHYROXINE NA 50 MCG TABLET (FP) PO SCH (06:44)
[2021-06-11] MEDS: ALBUTEROL SO4 2.5/IPRATROPIUM 0.5 INH SOL 3 ML VIAL.NEB. NEB SCH ×4 (07:25→19:34)
[2021-06-11] MEDS: AMINO ACIDS/PROTEIN HYDROLYS 30 ML LIQUID.PKT PO SCH (08:45)
[2021-06-11] MEDS: ZINC SULFATE 220 MG CAPSULE (FP) PO SCH (10:47)
[2021-06-11] MEDS: MULTIVITAMINS (DAILY MVI) TABLET (FP) PO SCH (10:47)
[2021-06-11] MEDS: GABAPENTIN 300 MG CAPSULE PO SCH ×2 (10:47→14:03)
[2021-06-11] MEDS ORDERED: HYDROmorphone HCl 2 MG/ML VIAL IVPB ONE (14:35)
[2021-06-11] MEDS: GABAPENTIN 400 MG CAPSULE PO SCH (22:08)
[2021-06-12] MEDS: HYDROmorphone HCl 2 MG/ML VIAL IVPB PRN ×5 (02:00→20:03)
[2021-06-12] MEDS: LEVOTHYROXINE NA 50 MCG TABLET (FP) PO SCH (06:41)
[2021-06-12] MEDS: AMINO ACIDS/PROTEIN HYDROLYS 30 ML LIQUID.PKT PO SCH (08:03)
[2021-06-12] MEDS: ALBUTEROL SO4 2.5/IPRATROPIUM 0.5 INH SOL 3 ML VIAL.NEB. NEB SCH ×4 (08:51→19:43)
[2021-06-12] MEDS: ZINC SULFATE 220 MG CAPSULE (FP) PO SCH (09:26)
[2021-06-12] MEDS: GABAPENTIN 300 MG CAPSULE PO SCH ×2 (09:27→14:24)
[2021-06-12] MEDS: MULTIVITAMINS (DAILY MVI) TABLET (FP) PO SCH (09:27)
[2021-06-12] MEDS ORDERED: FENTANYL PATCH WASTE MC PRN (11:39)
[2021-06-12] MEDS ORDERED: fentaNYL 50mcg/hr PATCH.TD72 TD SCH (12:30)
[2021-06-12] MEDS: GABAPENTIN 400 MG CAPSULE PO SCH (21:35)
[2021-06-12] MEDS ORDERED: ACETAMINOPHEN 1000 MG/100 ML BAG IVPB ONE (22:18)
[2021-06-13] MEDS: LEVOTHYROXINE NA 50 MCG TABLET (FP) PO SCH (06:03)
[2021-06-13] MEDS: ALBUTEROL SO4 2.5/IPRATROPIUM 0.5 INH SOL 3 ML VIAL.NEB. NEB SCH ×4 (08:26→19:45)
[2021-06-13] MEDS: HYDROmorphone HCl 2 MG/ML VIAL IVPB PRN ×4 (09:00→21:00)
[2021-06-13] MEDS: AMINO ACIDS/PROTEIN HYDROLYS 30 ML LIQUID.PKT PO SCH (09:01)
[2021-06-13] MEDS: ZINC SULFATE 220 MG CAPSULE (FP) PO SCH (10:28)
[2021-06-13] MEDS: GABAPENTIN 300 MG CAPSULE PO SCH ×2 (10:28→14:41)
[2021-06-13] MEDS: MULTIVITAMINS (DAILY MVI) TABLET (FP) PO SCH (10:28)
[2021-06-13] MEDS: GABAPENTIN 400 MG CAPSULE PO SCH (21:02)
[2021-06-14] MEDS: HYDROmorphone HCl 2 MG/ML VIAL IVPB PRN ×5 (04:10→21:30)
[2021-06-14] MEDS: LEVOTHYROXINE NA 50 MCG TABLET (FP) PO SCH (06:15)
[2021-06-14] MEDS: AMINO ACIDS/PROTEIN HYDROLYS 30 ML LIQUID.PKT PO SCH (08:09)
[2021-06-14] MEDS: ALBUTEROL SO4 2.5/IPRATROPIUM 0.5 INH SOL 3 ML VIAL.NEB. NEB SCH ×4 (08:54→20:34)
[2021-06-14] MEDS: GABAPENTIN 300 MG CAPSULE PO SCH ×2 (09:17→15:00)
[2021-06-14] MEDS: ZINC SULFATE 220 MG CAPSULE (FP) PO SCH (09:17)
[2021-06-14] MEDS: MULTIVITAMINS (DAILY MVI) TABLET (FP) PO SCH (09:18)
[2021-06-14] MEDS: GABAPENTIN 400 MG CAPSULE PO SCH (21:30)
[2021-06-15] MEDS: HYDROmorphone HCl 2 MG/ML VIAL IVPB PRN ×5 (05:20→21:01)
[2021-06-15] MEDS: LEVOTHYROXINE NA 50 MCG TABLET (FP) PO SCH (06:11)
[2021-06-15] MEDS: ALBUTEROL SO4 2.5/IPRATROPIUM 0.5 INH SOL 3 ML VIAL.NEB. NEB SCH ×4 (08:04→19:31)
[2021-06-15] MEDS: AMINO ACIDS/PROTEIN HYDROLYS 30 ML LIQUID.PKT PO SCH (08:57)
[2021-06-15] MEDS: ZINC SULFATE 220 MG CAPSULE (FP) PO SCH (09:00)
[2021-06-15] MEDS: GABAPENTIN 300 MG CAPSULE PO SCH ×2 (09:00→13:03)
[2021-06-15] MEDS: MULTIVITAMINS (DAILY MVI) TABLET (FP) PO SCH (09:01)
[2021-06-15] MEDS ORDERED: FENTANYL PATCH WASTE TD PRN (10:25)
[2021-06-15] MEDS ORDERED: fentaNYL 75mcg/hr PATCH.TD72 TD SCH (10:30)
[2021-06-15] MEDS: GABAPENTIN 400 MG CAPSULE PO SCH (21:01)
[2021-06-16] MEDS: HYDROmorphone HCl 2 MG/ML VIAL IVPB PRN ×5 (01:21→21:15)
[2021-06-16] MEDS: LEVOTHYROXINE NA 50 MCG TABLET (FP) PO SCH (06:11)
[2021-06-16] MEDS: ALBUTEROL SO4 2.5/IPRATROPIUM 0.5 INH SOL 3 ML VIAL.NEB. NEB SCH ×4 (08:22→20:05)
[2021-06-16] MEDS: MULTIVITAMINS (DAILY MVI) TABLET (FP) PO SCH (09:29)
[2021-06-16] MEDS: GABAPENTIN 300 MG CAPSULE PO SCH ×2 (09:30→13:13)
[2021-06-16] MEDS: AMINO ACIDS/PROTEIN HYDROLYS 30 ML LIQUID.PKT PO SCH (09:30)
[2021-06-16] MEDS: ZINC SULFATE 220 MG CAPSULE (FP) PO SCH (09:30)
[2021-06-16] MEDS: methylPREDNISolone NA SUCC 40 MG/1 ML VIAL IVPUSH SCH ×3 (13:13→21:16)
[2021-06-16] MEDS: GABAPENTIN 400 MG CAPSULE PO SCH (21:16)
[2021-06-17] MEDS: methylPREDNISolone NA SUCC 40 MG/1 ML VIAL IVPUSH SCH ×4 (02:58→21:09)
[2021-06-17] MEDS: HYDROmorphone HCl 2 MG/ML VIAL IVPB PRN ×6 (04:34→21:54)
[2021-06-17] MEDS: LEVOTHYROXINE NA 50 MCG TABLET (FP) PO SCH (06:38)
[2021-06-17] MEDS: ALBUTEROL SO4 2.5/IPRATROPIUM 0.5 INH SOL 3 ML VIAL.NEB. NEB SCH ×4 (07:43→20:22)
[2021-06-17] MEDS: AMINO ACIDS/PROTEIN HYDROLYS 30 ML LIQUID.PKT PO SCH (08:57)
[2021-06-17] MEDS: GABAPENTIN 300 MG CAPSULE PO SCH ×2 (09:16→14:53)
[2021-06-17] MEDS: ZINC SULFATE 220 MG CAPSULE (FP) PO SCH (09:16)
[2021-06-17] MEDS: MULTIVITAMINS (DAILY MVI) TABLET (FP) PO SCH (09:16)
[2021-06-17] MEDS: GABAPENTIN 400 MG CAPSULE PO SCH (21:09)
[2021-06-17] MEDS ORDERED: FENTANYL PATCH WASTE MC PRN (22:40)
[2021-06-17] MEDS ORDERED: fentaNYL 100mcg/hr PATCH.TD72 TD SCH (22:45)
[2021-06-18] MEDS: methylPREDNISolone NA SUCC 40 MG/1 ML VIAL IVPUSH SCH ×4 (03:02→22:09)
[2021-06-18] MEDS: HYDROmorphone HCl 2 MG/ML VIAL IVPB PRN ×4 (04:54→13:33)
[2021-06-18] MEDS: LEVOTHYROXINE NA 50 MCG TABLET (FP) PO SCH (06:14)
[2021-06-18] MEDS: ALBUTEROL SO4 2.5/IPRATROPIUM 0.5 INH SOL 3 ML VIAL.NEB. NEB SCH ×4 (08:05→20:32)
[2021-06-18] MEDS: AMINO ACIDS/PROTEIN HYDROLYS 30 ML LIQUID.PKT PO SCH (08:38)
[2021-06-18] MEDS: MULTIVITAMINS (DAILY MVI) TABLET (FP) PO SCH (10:47)
[2021-06-18] MEDS: ZINC SULFATE 220 MG CAPSULE (FP) PO SCH (10:47)
[2021-06-18] MEDS: GABAPENTIN 300 MG CAPSULE PO SCH ×2 (10:47→13:46)
[2021-06-18] MEDS: LORazepam 2 MG/ML SDV VIAL IVPB PRN ×2 (15:54→20:58)
[2021-06-18] MEDS: MORPHINE SULFATE/0.9% NACL/PF 100 MG/100 ML BAG IVPB SCH (16:37)
[2021-06-19] MEDS: methylPREDNISolone NA SUCC 40 MG/1 ML VIAL IVPUSH SCH ×3 (03:34→15:00)
[2021-06-19] MEDS: LEVOTHYROXINE NA 50 MCG TABLET (FP) PO SCH (08:11)
[2021-06-19] MEDS: ALBUTEROL SO4 2.5/IPRATROPIUM 0.5 INH SOL 3 ML VIAL.NEB. NEB SCH ×3 (08:30→15:05)
[2021-06-19] MEDS: AMINO ACIDS/PROTEIN HYDROLYS 30 ML LIQUID.PKT PO SCH (09:40)
[2021-06-19] MEDS: MULTIVITAMINS (DAILY MVI) TABLET (FP) PO SCH (09:41)
[2021-06-19 14:33] VITALS: BP 67/31; PULSE 87; TEMP 97.5
[2021-06-19] MEDS ORDERED: SCOPOLAMINE HYDROBROMIDE 1 PATCH PATCH.TD72 TD SCH (16:00)
[2021-06-19] MEDS: MORPHINE SULFATE/0.9% NACL/PF 100 MG/100 ML BAG IVPB SCH (17:08)
== END 2021-06-19 18:40 | disposition expired | DRG 180 ==
LOC: JER 11:19 → JERBED 15:04 → J6S 16:56 → J7W 06-18 21:53
PROVIDERS: ADMIT Family Medicine; ATTEND Internal Medicine
PROC: 0W9930Z Drainage of Right Pleural Cavity with Drainage Device, Percutaneous Approach (ICD-10-PCS; 2021-06-09)
PROC: 0W9930Z Drainage of Right Pleural Cavity with Drainage Device, Percutaneous Approach (ICD-10-PCS; principal; 2021-06-16)
DX: C34.90 Malignant neoplasm of unspecified part of unspecified bronchus or lung (principal); E43 Unspecified severe protein-calorie malnutrition; C79.51 Secondary malignant neoplasm of bone; J91.0 Malignant pleural effusion; E87.1 Hypo-osmolality and hyponatremia; R64 Cachexia; Z68.1 Body mass index [BMI] 19.9 or less, adult; I48.91 Unspecified atrial fibrillation; I10 Essential (primary) hypertension; E03.9 Hypothyroidism, unspecified; E83.39 Other disorders of phosphorus metabolism; R62.7 Adult failure to thrive; K21.9 Gastro-esophageal reflux disease without esophagitis
CPT/HCPCS: 32550; 32557; 36415; 70450-TC; 71045-TC-FY; 71046-TC-FY; 71250-TC; 72125-TC; 80053; 81003; 82042; 82150; 82945; 83605; 83615; 83735; 83880; 83986; 84100; 84157; 84443; 84478; 84484; 85025; 85610; 85730; 86850; 86900; 86901; 87070; 87075; 87086; 87102; 87116; 87186; 87205; 87206; 87210; 88108; 88305-TC; 93005; 93010; 94640; 97116-GP; 97162-GP; 99285-25; C1729; C1769; C1894; C9803-CS; E0372; U0003; U0005